=== PATIENT | female | born 1990 | race Two or more races ===

== ENCOUNTER 2017-01-23 15:22 | Emergency (ER) | payer SELFPAY ==
[~2017-01-23] VITALS: Ht 170.2 cm; Wt 95.3 kg
[2017-01-23] MEDS ORDERED: Famotidine 20 MG/ 2ML VIAL IVP ONE (16:15)
[2017-01-23] MEDS ORDERED: Metoclopramide 10mg/2ml Inj IVP ONE (16:15)
[2017-01-23 16:28] LABS: APPEARANCE,URINE SLIGHTLY CLOUDY; KETONES,URINE NEGATIVE (NEGATIVE); LEUKOCYTE ESTERASE ,URINE 2+ (NEGATIVE); NITRITE,URINE NEGATIVE (NEGATIVE); PH,URINE 7 (4.5-8.0); PROTEIN,URINE NEGATIVE (NEGATIVE); UROBILINOGEN,URINE NORMAL MG/DL (0.0-1.0)
[2017-01-23 16:44] LABS: BACTERIA,URINE FEW /HPF; RBC,URINE TNTC /HPF (0 - 2); SQUAMOUS EPITHELIAL CELL,UR FEW /LPF (NONE/OCC); WBC,URINE 0-2 /HPF (0 - 2)
[2017-01-23 16:47] LABS: EOSINOPHILS % (AUTO) 2.5 % (0.0-3.0); LYMPHOCYTES % (AUTO) 30.2 % (20.0-45.0); MEAN CORPUSCULAR HEMOGLOBIN 23.5 PG (27.0-31.0); MEAN CORPUSCULAR HGB CONC 30.9 G/DL (32.0-36.0); MEAN CORPUSCULAR VOLUME 76 FL (80-99); MEAN PLATELET VOLUME 5.7 FL (6.5-10.1); NEUTROPHILS % (AUTO) 59.3 % (45.0-75.0); PLATELET COUNT 282 K/UL (150-450); RED BLOOD COUNT 4.24 M/UL (4.20-5.40); RED CELL DISTRIBUTION WIDTH 16.1 % (11.6-14.8); WHITE BLOOD COUNT 8.9 K/UL (4.8-10.8)
[2017-01-23 16:52] VITALS: BP 130/88
[2017-01-23 16:57] LABS: ALANINE AMINOTRANSFERASE 102 U/L (3-33); ANION GAP 16 (5-15); ASPARTATE AMINO TRANSFERASE 74 U/L (5-40); CALCIUM 9.3 mg/dL (8.6-10.2); CARBON DIOXIDE 24 mEQ/L (20-30); CHLORIDE 100 mEQ/L (98-107); CREATININE 0.6 mg/dL (0.5-0.9); GLOMERULAR FILTRATION RATE > 60 mL/min (>60); HEMOLYSIS 1; LIPASE 35 U/L (< 60); POTASSIUM 3.8 mEQ/L (3.4-4.9); SODIUM 140 mEQ/L (135-145); TOTAL PROTEIN 8.1 g/dL (6.6-8.7)
[2017-01-23] MEDS ORDERED: ZOFRAN ODT4 MG ORAL (17:26)
[2017-01-23] MEDS ORDERED: RANITIDINE HCL150 MG ORAL (17:26)
[2017-01-23 17:35] VITALS: BP 130/88
--- NOTE | 2017-01-23 18:53 | Emergency Room Report ---
History of Present Illness General Chief Complaint: Abdominal Pain Source: Patient Present Illness HPI 26-year-old female present to ED complaining of abdominal pain and vomiting. States symptoms started yesterday. Pain is epigastric, sharp, 9/10, nonradiating. Notes multiple episodes of vomiting. Denies chest pain or shortness of breath. Denies diarrhea. Denies dysuria or hematuria. No other aggravating or relieving factors. Denies any other associated symptom Allergies: Coded Allergies: No Known Allergies (Unverified , 01/23/17) Patient History Past Medical History: none Past Surgical History: none Pertinent Family History: none Social History: Denies: alcohol use, drug use, smoking Last Menstrual Period: 01/19/17 Now: No Immunizations: UTD Reviewed Nursing Documentation: PMH: Agreed, PSxH: Agreed Nursing Documentation-PMH Past Medical History: No Stated History Review of Systems All Other Systems: negative except mentioned in HPI Physical Exam Vital Signs Date Time Temp Pulse Resp B/P Pulse Ox O2 Delivery O2 Flow Rate FiO2 01/23/17 15:33 97.9 77 15 132/84 100 Room Air Sp02 EP Interpretation: reviewed, normal General Appearance: no apparent distress, alert, GCS 15, non-toxic Head: normocephalic Eyes: bilateral eye PERRL, bilateral eye normal inspection ENT: normal ENT inspection Neck: normal inspection Respiratory: chest non-tender, lungs clear, normal breath sounds, speaking full sentences Cardiovascular #1: regular rate, rhythm, no edema Gastrointestinal: normal bowel sounds, soft, non-distended, no guarding, no rebound, tenderness - epigastric Rectal: deferred Genitourinary: no CVA tenderness Musculoskeletal: normal inspection Neurologic: alert, oriented x3, responsive, motor strength/tone normal, sensory intact, speech normal Psychiatric: normal inspection Skin: normal inspection Lymphatic: normal inspection Medical Decision Making Diagnostic Impression: Primary Impression: Gastritis Qualified Codes: K29.00 - Acute gastritis without bleeding ER Course Hospital Course 26-year-old F presents to ED with epigastric pain with N/V. differential diagnosis: gastritis, SBO, cholecystits Clinical course Patient placed on stretcher. On monitoring tech. After initial history and physical I ordered labs, IV fluids, Zofran and pepcid Labs - no leukocytosis, no electrolyte abnormalities, LFTs normal, UA unremarkable Upon reassessment, patient states pain has improved. findings consistent with gastritis I feel this is a highly complex case requiring extensive working including EKG/ Rhythm strip, Xray/CT/US, Blood/urine lab work, repeat exams while in ED, and administration of strong opiates/narcotics for pain control, admission to hospital or close patient follow up. Diagnosis - gastritis Stable and discharged to home with prescriptions for zofran, Zantac. Followup with PMD. Return to ED if symptoms recur or worsen Labs Test 01/23/17 16:09 01/23/17 16:27 Urine Color Pale yellow Urine Appearance Slightly cloudy Urine pH 7 (4.5-8.0) Urine Specific [place] 1.005 (1.005-1.035) Urine Protein Negative (NEGATIVE) Urine Glucose (UA) Negative (NEGATIVE) Urine Ketones Negative (NEGATIVE) Urine Occult Blood 5+ (NEGATIVE) Urine Nitrite Negative (NEGATIVE) Urine Bilirubin Negative (NEGATIVE) Urine Urobilinogen Normal MG/DL (0.0-1.0) Urine Leukocyte Esterase 2+ (NEGATIVE) Urine RBC Tntc /HPF (0 - 2) Urine WBC 0-2 /HPF (0 - 2) Urine Squamous Epithelial Cells Few /LPF (NONE/OCC) Urine Bacteria Few /HPF (NONE) Urine HCG, Qualitative Negative White Blood Count 8.9 K/UL (4.8-10.8) Red Blood Count 4.24 M/UL (4.20-5.40) Hemoglobin 10.0 G/DL (12.0-16.0) Hematocrit 32.3 % (37.0-47.0) Mean Corpuscular Volume 76 FL (80-99) Mean Corpuscular Hemoglobin 23.5 PG (27.0-31.0) Mean Corpuscular Hemoglobin Concent 30.9 G/DL (32.0-36.0) Red Cell Distribution Width 16.1 % (11.6-14.8) Platelet Count 282 K/UL (150-450) Mean Platelet Volume 5.7 FL (6.5-10.1) Neutrophils (%) (Auto) 59.3 % (45.0-75.0) Lymphocytes (%) (Auto) 30.2 % (20.0-45.0) Monocytes (%) (Auto) 7.0 % (1.0-10.0) Eosinophils (%) (Auto) 2.5 % (0.0-3.0) Basophils (%) (Auto) 1.0 % (0.0-2.0) Sodium Level 140 mEQ/L (135-145) Potassium Level 3.8 mEQ/L (3.4-4.9) Chloride Level 100 mEQ/L (98-107) Carbon Dioxide Level 24 mEQ/L (20-30) Anion Gap 16 (5-15) Blood Urea Nitrogen 8 mg/dL (7-23) Creatinine 0.6 mg/dL (0.5-0.9) Estimat Glomerular Filtration Rate > 60 mL/min (>60) Glucose Level 84 mg/dL (74-106) Calcium Level 9.3 mg/dL (8.6-10.2) Total Bilirubin 0.2 mg/dL (0.0-1.2) Aspartate Amino Transf (AST/SGOT) 74 U/L (5-40) Alanine Aminotransferase (ALT/SGPT) 102 U/L (3-33) Alkaline Phosphatase 90 U/L (35-104) Total Protein 8.1 g/dL (6.6-8.7) Albumin 4.1 g/dL (3.5-5.2) Globulin 4.0 g/dL Albumin/Globulin Ratio 1.0 (1.0-2.7) Lipase 35 U/L (< 60) Last Vital Signs Date Time Temp Pulse Resp B/P Pulse Ox O2 Delivery O2 Flow Rate FiO2 01/23/17 17:35 97.9 81 19 130/88 98 Room Air Status: improved Disposition: HOME, SELF-CARE Condition: Stable Scripts Ondansetron Odt* (ZOFRAN ODT*) 4 Mg Tab.rapdis 4 MG ORAL Q6H Y for Nausea & Vomiting, #30 TAB 0 Refills Prov: PARIS ZHOU M.D. 01/23/17 Ranitidine Hcl* (ZANTAC*) 150 Mg Tablet 150 MG ORAL TWICE A DAY, #30 TAB Prov: PARIS ZHOU M.D. 01/23/17 Patient Instructions: Gastritis, Adult, Ujul-al-Chni PARIS ZHOU M.D. Jan 23, 2017 18:53
== END 2017-01-23 17:36 | disposition home or self-care (01) ==
LOC: EMR 17:14
DX: K29.70 Gastritis, unspecified, without bleeding (principal)
CPT/HCPCS: 36415; 80053; 81003; 81025; 83690; 85025; 96374; 96375; 99284; J2765; S0028

== ENCOUNTER 2017-03-03 18:23 | Emergency (ER) | payer OTHER ==
[~2017-03-03] VITALS: Ht 170.2 cm; Wt 90.7 kg
[~2017-03-03 18:23] MED LIST: RANITIDINE HCL150 MG ORAL; ZOFRAN ODT4 MG ORAL
[2017-03-03 18:31] VITALS: BP 131/88
[2017-03-03 19:15] VITALS: BP 131/88
[2017-03-03] MEDS ORDERED: CEPHALEXIN500 MG ORAL (19:23)
[2017-03-03] MEDS ORDERED: CORTIZONE 1028 GM TP (19:23)
--- NOTE | 2017-03-03 21:05 | Emergency Room Report ---
History of Present Illness General Chief Complaint: Skin Rash/Abscess Source: Patient Present Illness HPI The patient is a 26 -year-old female presenting for rash and pain of the right arm. The patient states that she awoke yesterday with the symptoms. She denies any known injury to these areas. Pain is described as an 8/10 burning sensation and does not radiate. Pain worse with touch. She initially noted small red bumps which then grew in size. She denies any known allergies. She denies using any new products. She has not tried any medications. She denies any other symptoms including nausea, vomiting, fever, chills, shortness of breath Allergies: Coded Allergies: No Known Allergies (Unverified , 01/23/17) Patient History Past Medical History: see triage record Pertinent Family History: none Last Menstrual Period: 1 month Now: No Reviewed Nursing Documentation: PMH: Agreed, PSxH: Agreed Nursing Documentation-PMH Past Medical History: No History, Except For Review of Systems All Other Systems: negative except mentioned in HPI Physical Exam Vital Signs Date Time Temp Pulse Resp B/P Pulse Ox O2 Delivery O2 Flow Rate FiO2 03/03/17 18:31 98.1 90 18 131/88 98 Room Air Sp02 EP Interpretation: reviewed, normal General Appearance: no apparent distress, alert, GCS 15, non-toxic Head: normocephalic, atraumatic Eyes: bilateral eye PERRL, bilateral eye normal inspection ENT: hearing grossly normal, normal pharynx, no angioedema, normal voice Respiratory: chest non-tender, lungs clear, normal breath sounds, speaking full sentences Cardiovascular #1: regular rate, rhythm, no edema Musculoskeletal: back normal, gait/station normal, normal range of motion, non- tender Neurologic: alert, oriented x3, responsive, motor strength/tone normal, sensory intact, speech normal Psychiatric: judgement/insight normal, memory normal, mood/affect normal, no suicidal/homicidal ideation Skin: normal turgor, rash - R arm: tender, erythematous, hot Lymphatic: no adenopathy Medical Decision Making PA Attestation Dr. Roe is my supervising physician. Patient management was discussed with my supervising physician Diagnostic Impression: Primary Impression: Cellulitis Qualified Codes: L03.113 - Cellulitis of right upper limb ER Course The patient is a 26 old female presenting for painful red rash of the right arm Ddx considered include but not limited to insect bite, contact dermatitis, eczema, cellulitis Physical exam: Vitals are within normal limits. No apparent distress Right arm: There are 3 erythematous macular lesions approximately 6 cm in diameter with a central papule. Tender to palpation. Hot to the touch. No streaking is noted. The patient will be treated for cellulitis. ER precautions are given. Last Vital Signs Date Time Temp Pulse Resp B/P Pulse Ox O2 Delivery O2 Flow Rate FiO2 03/03/17 19:15 98.1 90 18 131/88 98 Room Air Status: improved Disposition: HOME, SELF-CARE Condition: Improved Scripts Hydrocortisone (CORTIZONE 10) 28 Gm Gel..gram. 1 APPLIC TP TID, #28 GM Prov: GUNNAR OTTO 03/03/17 Cephalexin* (KEFLEX*) 500 Mg Capsule 500 MG ORAL EVERY 6 HOURS, #28 CAP Prov: GUNNAR OTTO 03/03/17 Referrals: [facility]LE[facility],REFERRING (PCP) Patient Instructions: Cellulitis Additional Instructions: I discussed my findings with the patient. All questions and concerns have been answered. Treatment and medication compliance have been addressed. I advised the patient that they need to follow up with PMD in 3-5 days. Return to ED if symptoms worsen, new symptoms arise such as fever, or if needed for any reason. Patient verbalized understanding of discharge instructions. GUNNAR OTTO March 03, 2017 21:04
== END 2017-03-03 19:50 | disposition home or self-care (01) ==
LOC: EMR 19:05
DX: L03.113 Cellulitis of right upper limb (principal)
CPT/HCPCS: 99284

== ENCOUNTER 2017-03-29 19:23 | Emergency (ER) | payer OTHER ==
[~2017-03-29] VITALS: Ht 172.7 cm; Wt 90.7 kg
[~2017-03-29 19:23] MED LIST changes: +CEPHALEXIN500 MG ORAL; +CORTIZONE 1028 GM TP
[2017-03-29 19:50] VITALS: BP 130/82
--- NOTE | 2017-03-29 19:57 | Emergency Room Report ---
History of Present Illness General Chief Complaint: Upper Extremity Injury Present Illness HPI 26 y/o female c/o right shoulder pain x 2 days. States she had fallen and landed on her right shoulder and her pain has been progressively getting worse and she feels a snapping sensation on the superior lateral aspect of right clavicle region. States pain is worse with ROM and that she cannot raise her arm over her head due to the pain. States she took 800mg ibuprofen w/o improvement, last taken 2 hours ago. Patient denies any numbness, tingling, pressure, paralysis, cyanosis, bruising, or loss of sensation. Allergies: Coded Allergies: No Known Allergies (Unverified , 01/23/17) Patient History Past Medical History: see triage record Past Surgical History: none Pertinent Family History: none Last Menstrual Period: 1 week ago Now: No Reviewed Nursing Documentation: PMH: Agreed, PSxH: Agreed Review of Systems All Other Systems: negative except mentioned in HPI Physical Exam Vital Signs Date Time Temp Pulse Resp B/P Pulse Ox O2 Delivery O2 Flow Rate FiO2 03/29/17 19:37 97.9 80 16 137/80 100 Room Air Sp02 EP Interpretation: reviewed, normal General Appearance: no apparent distress, alert, GCS 15, non-toxic Head: normocephalic, atraumatic Eyes: bilateral eye normal inspection ENT: normal ENT inspection Neck: full range of motion, no bony tend, supple/symm/no masses Respiratory: normal breath sounds, speaking full sentences Cardiovascular #1: normal peripheral pulses, normal capillary refill Cardiovascular #2: 2+ radial (R), 2+ radial (L) Musculoskeletal: back normal, gait/station normal, decreased range of motion - with abduction and extension of right shoulder, other - +Neers, +Yaergons, Neg Sulcus, +Empty Can. Pain against resistance esspecially against abduction and flexsion of right shoulder. , tender - along right clavicle and right deltoid Neurologic: alert, oriented x3, responsive, motor strength/tone normal, sensory intact, speech normal Psychiatric: judgement/insight normal, memory normal, mood/affect normal, no suicidal/homicidal ideation Skin: normal color, no rash, warm/dry, well hydrated Medical Decision Making PA Attestation Dr. Monzon is my supervising physician with whom patient management has been discussed with. Diagnostic Impression: Primary Impression: Injury of right upper extremity Qualified Codes: S49.91XA - Unspecified injury of right shoulder and upper arm , initial encounter Additional Impression: Right shoulder pain Qualified Codes: M25.511 - Pain in right shoulder ER Course Pt. presents to the ED c/o shoulder pain Ddx considered but are not limited to fracture, dislocation, sprain, strain, tendonitis, AC joint separation, contusion Vital signs: are WNL, pt. is afebrile H&PE are most consistent with [] ORDERS: XR Shoulder ED INTERVENTIONS: Sling, [place] 10/325mg PO DISCHARGE: At this time pt. is stable for d/c to home. Patient advised she may need MRI with PCP for further eval to r/o tendon rupture. Will provide printed patient care instructions, and any necessary prescriptions. Care plan and follow up instructions have been discussed with the patient prior to discharge. Other X-Ray Diagnostic Results Other X-Ray Diagnostic Results : X-Ray Ordered: Right shoulder Date: Mar 29, 2017 EP Interpretation: Yes Findings: no fractures, no dislocation, other - Possible AC joint seperation. Possible compression fracture Last Vital Signs Date Time Temp Pulse Resp B/P Pulse Ox O2 Delivery O2 Flow Rate FiO2 03/29/17 19:37 97.9 80 16 137/80 100 Room Air Status: unchanged Disposition: HOME, SELF-CARE Condition: Stable Scripts Methocarbamol* (ROBAXIN-750*) 750 Mg Tablet 750 MG PO TID, #30 TAB 0 Refills Prov: SABRY,TAMEEM P.A. 03/29/17 Acetaminophen With Codeine (T#4) (TYLENOL #4 TAB*) Y Tab 1 TAB ORAL Q8H Y for For Pain, #20 TAB 0 Refills Prov: SABRY,TAMEEM P.A. 03/29/17 Patient Instructions: Shoulder Separation Additional Instructions: Take medication as directed. Advise patient to use RICE therapy and avoid exercises for the next 2-3 weeks to help rest the shoulder. Patient to follow up with PCP within 5-7 days for additional management of injury. Patient instructed to massage the muscles that are tight or tense, put ice for 5-7 minutes or a frozen bag of peas or cold gel pack on the area for 20 minutes at a time, a few times a day, put heat on the area to reduce pain and stiffness by either taking a hot shower or hot bath, or put a hot towel on the area for no more than 20 minutes at a time. Patient instructed to not use anything too hot that could burn your skin. Return to the ER if symptoms worsen. SUNDAR RAMOS Mar 29, 2017 19:57
[2017-03-29] MEDS ORDERED: Norco 10mg/325mg tab ORAL ONE (20:00)
[2017-03-29] MEDS ORDERED: ROBAXIN-750750 MG PO (20:34)
[2017-03-29] MEDS ORDERED: ACETAMINOPHEN-1 EAC2 ORAL (20:34)
[2017-03-29 20:50] VITALS: BP 130/82
--- NOTE | 2017-03-30 11:24 | Diagnostic Imaging Report ---
Indication: Pain Findings: 3 views of the right shoulder were obtained. No acute fractures, malalignment, erosions or periostitis are identified. Bone mineralization is within normal limits. Soft tissues are unremarkable. Impression: Negative examination of the shoulder.
== END 2017-03-29 20:50 | disposition home or self-care (01) ==
LOC: EMR 19:48
DX: S49.91XA Unspecified injury of right shoulder and upper arm, initial encounter (principal); M25.511 Pain in right shoulder; W19.XXXA Unspecified fall, initial encounter; Y93.9 Activity, unspecified; Y92.9 Unspecified place or not applicable
CPT/HCPCS: 99284

== ENCOUNTER 2017-04-01 11:28 | Emergency (ER) | payer OTHER ==
[~2017-04-01] VITALS: Ht 170.2 cm; Wt 95.3 kg
[~2017-04-01 11:28] MED LIST changes: +ACETAMINOPHEN-1 EAC2 ORAL; +ROBAXIN-750750 MG PO
[2017-04-01 11:40] VITALS: BP 125/89
--- NOTE | 2017-04-01 11:50 | Emergency Room Report ---
History of Present Illness General Chief Complaint: Upper Extremity Injury Source: Patient Present Illness HPI 26 y/o female c/o right shoulder pain x 5 days. States she had fallen and landed on her right shoulder and her pain has been progressively getting worse and she feels a snapping sensation on the superior lateral aspect of right clavicle region. When she was seen 3 days ago she had stated pain is worse with ROM and that she cannot raise her arm over her head due to the pain. Today she states she has no ROM of right shoulder and that she continued to feel a popping and snapping sensation of her right shoulder prior to losing ROM of the right shoulder. States she took 800mg ibuprofen, Robaxin 750mg, Tylenol #4 and used a sling with RICE therapy w/o relief, last taken last night. States she saw her PCP who stated she follow up in 2 weeks if symptoms did not improve. Patient denies any numbness, tingling, pressure, cyanosis, bruising, or loss of sensation. Allergies: Coded Allergies: No Known Allergies (Unverified , 01/23/17) Patient History Past Medical History: see triage record Past Surgical History: none Pertinent Family History: none Last Menstrual Period: 2 weeks Now: No Reviewed Nursing Documentation: PMH: Agreed, PSxH: Agreed Nursing Documentation-PMH Past Medical History: No History, Except For Review of Systems All Other Systems: negative except mentioned in HPI Physical Exam Vital Signs Date Time Temp Pulse Resp B/P Pulse Ox O2 Delivery O2 Flow Rate FiO2 04/01/17 11:31 98.2 89 127/86 98 Room Air 04/01/17 11:40 14 Sp02 EP Interpretation: reviewed, normal General Appearance: no apparent distress, alert, GCS 15, non-toxic Head: normocephalic, atraumatic Eyes: bilateral eye PERRL, bilateral eye normal inspection ENT: normal ENT inspection Respiratory: no respiratory distress, speaking full sentences Cardiovascular #1: normal peripheral pulses, normal capillary refill Musculoskeletal: gait/station normal, decreased range of motion - unable to abduct, extend, or externally rotate right shoulder., tender - severely tender along right clavicle and right anterior shoulder. Neurologic: alert, oriented x3, responsive, sensory intact, speech normal Psychiatric: judgement/insight normal, memory normal, mood/affect normal, no suicidal/homicidal ideation Skin: normal color, no rash, warm/dry, well hydrated Medical Decision Making PA Attestation Dr. Monzon is my supervising physician with whom patient management has been discussed with. Diagnostic Impression: Primary Impression: Rotator cuff injury Qualified Codes: S46.001D - Unspecified injury of muscle(s) and tendon(s) of the rotator cuff of right shoulder, subsequent encounter Additional Impression: Right shoulder pain Qualified Codes: M25.511 - Pain in right shoulder ER Course Pt. presents to the ED c/o right shoulder pain Ddx considered but are not limited to sprain, strain, contusion, dislocation, fracture, tendonitis, shoulder impingement, adhesive capsulitis, tendon rupture Vital signs: are WNL, pt. is afebrile H&PE are most consistent with rotator cuff injury, cannot rule out tendon rupture ORDERS: none required at this time, the diagnosis is clinical ED INTERVENTIONS: [place] 10, Ibuprofen 800mg. Placed a call to patient's PCP, Bibiana Forrest. PCP was not present but spoke with philanthropy officer Marion and advised that she consider PT for patient and MRI which would be more appropriate test for patient's injury than a CT scan from our ER. Marion stated she would get the patient a stat PT referral and put in a request for MRI. DISCHARGE: At this time pt. is stable for d/c to home. Will provide printed patient care instructions, and any necessary prescriptions. Care plan and follow up instructions have been discussed with the patient prior to discharge. Last Vital Signs Date Time Temp Pulse Resp B/P Pulse Ox O2 Delivery O2 Flow Rate FiO2 04/01/17 11:40 98.1 87 14 125/89 99 Room Air Status: unchanged Disposition: HOME, SELF-CARE Condition: Stable Scripts Hydrocodone Bit/Acetaminophen 10-325* (NORCO 10-325*) 1 Each Tablet 1 TAB ORAL Q8HR Y for For Pain, #24 TAB 0 Refills PRN PAIN Prov: SUNDAR RAMOS.Rosangela 04/01/17 Referrals: [facility],REFERRING (PCP) Patient Instructions: Impingement Syndrome, Rotator Cuff, Bursitis With Rehab- [facility], Rotator Cuff Injury Additional Instructions: Take medication as directed. Patient advised to follow up with PCP for PT and MRI orders and to collect medical record request from [facility] to supply to PCP for referral and MRI to be processed. Advise patient to use RICE therapy and avoid exercises for the next 2-3 weeks to help rest the shoulder. Patient instructed to massage the muscles that are tight or tense, put ice for 5-7 minutes or a frozen bag of peas or cold gel pack on the area for 20 minutes at a time, a few times a day, put heat on the area to reduce pain and stiffness by either taking a hot shower or hot bath, or put a hot towel on the area for no more than 20 minutes at a time. Patient instructed to not use anything too hot that could burn your skin. SUNDAR RAMOS Apr 01, 2017 11:50
[2017-04-01] MEDS ORDERED: Norco 10mg/325mg tab ORAL ONE (12:00)
[2017-04-01] MEDS ORDERED: NORCO 10-325 T1 EACH ORAL (12:19)
[2017-04-01 12:28] VITALS: BP 125/89
== END 2017-04-01 12:30 | disposition home or self-care (01) ==
LOC: EMR 11:45
DX: S46.001D Unspecified injury of muscle(s) and tendon(s) of the rotator cuff of right shoulder, subsequent encounter (principal); M25.511 Pain in right shoulder; W19.XXXD Unspecified fall, subsequent encounter
CPT/HCPCS: 99283

== ENCOUNTER 2017-05-26 21:05 | Emergency (ER) | payer OTHER ==
[~2017-05-26] VITALS: Ht 172.7 cm; Wt 104.3 kg
[~2017-05-26 21:05] MED LIST changes: +NORCO 10-325 T1 EACH ORAL
[2017-05-26 22:00] VITALS: BP 134/78
[2017-05-26 22:40] LABS: BASOPHILS % (AUTO) 1.1 % (0.0-2.0); EOSINOPHILS % (AUTO) 1.4 % (0.0-3.0); LYMPHOCYTES % (AUTO) 33.2 % (20.0-45.0); MEAN CORPUSCULAR HEMOGLOBIN 24.9 PG (27.0-31.0); MEAN CORPUSCULAR VOLUME 78 FL (80-99); MEAN PLATELET VOLUME 5.5 FL (6.5-10.1); MONOCYTES % (AUTO) 5.9 % (1.0-10.0); NEUTROPHILS % (AUTO) 58.4 % (45.0-75.0); PLATELET COUNT 331 K/UL (150-450); RED BLOOD COUNT 4.04 M/UL (4.20-5.40); RED CELL DISTRIBUTION WIDTH 15.8 % (11.6-14.8); WHITE BLOOD COUNT 8.7 K/UL (4.8-10.8)
[2017-05-26 22:41] LABS: APPEARANCE,URINE SLIGHTLY CLOUDY; KETONES,URINE NEGATIVE (NEGATIVE); LEUKOCYTE ESTERASE ,URINE NEGATIVE (NEGATIVE); NITRITE,URINE NEGATIVE (NEGATIVE); PH,URINE 7 (4.5-8.0); PROTEIN,URINE NEGATIVE (NEGATIVE); UROBILINOGEN,URINE NORMAL MG/DL (0.0-1.0)
[2017-05-26 22:54] LABS: BACTERIA,URINE FEW /HPF; SQUAMOUS EPITHELIAL CELL,UR FEW /LPF (NONE/OCC)
--- NOTE | 2017-05-26 22:59 | Emergency Room Report ---
History of Present Illness General Chief Complaint: Gastrointestinal Bleed Source: Patient, Medical Record Present Illness HPI Is a 26-year-old female with no significant past medical history. She presents with 2 complaints. First complaint is vaginal bleeding. Her menstrual flow was irregular this month. It lasted for about 7 days. It came on again midcycle and now stop. She lost about 20 pounds in last week by dieting. No fever or chills. No nausea no vomiting. Mild cramping. Normally her menstrual flow is very heavy. Second complaint is rectal bleeding. Onset for one day. Bright red blood in the toilet. No pain. She had this before but usually spotting. No trauma. Allergies: Coded Allergies: No Known Allergies (Unverified , 01/23/17) Patient History Past Medical History: see triage record, old chart reviewed Past Surgical History: none Pertinent Family History: none Social History: Denies: smoking Last Menstrual Period: 05/06/17 Now: No : 0 Para: 0 Immunizations: other Reviewed Nursing Documentation: PMH: Agreed, PSxH: Agreed Review of Systems Eye: Denies: blurred vision, eye pain ENT: Denies: ear pain, nose congestion, throat swelling Respiratory: Denies: cough, shortness of breath Cardiovascular: Denies: chest pain, palpitations Gastrointestinal: Denies: abdominal pain, diarrhea, nausea, vomiting Genitourinary: Reports: vag bleed/dc Musculoskeletal: Denies: back pain, joint pain Skin: Denies: rash Neurological: Denies: headache, numbness Endocrine: Denies: increased thirst, increased urine Hematologic/Lymphatic: Denies: easy bruising All Other Systems: negative except mentioned in HPI Physical Exam Vital Signs Date Time Temp Pulse Resp B/P Pulse Ox O2 Delivery O2 Flow Rate FiO2 05/26/17 21:23 98.1 75 18 134/78 98 Room Air vitals normal Sp02 EP Interpretation: reviewed, normal General Appearance: well appearing, no apparent distress, alert Head: normocephalic, atraumatic Eyes: bilateral eye EOMI, bilateral eye PERRL ENT: hearing grossly normal, normal pharynx Neck: full range of motion, supple, no meningismus Respiratory: chest non-tender, lungs clear, normal breath sounds Cardiovascular #1: regular rate, rhythm, no murmur Gastrointestinal: normal bowel sounds, non tender, no mass, no organomegaly, no bruit, non-distended Rectal: normal exam, normal rectal tone, heme negative stool Musculoskeletal: back normal, gait/station normal, normal range of motion Psychiatric: mood/affect normal Skin: warm/dry Medical Decision Making Diagnostic Impression: Primary Impression: Rectal bleeding Additional Impressions: Dysfunctional uterine bleeding Anemia Qualified Codes: D64.9 - Anemia, unspecified ER Course Patient with dysfunctional uterine bleeding. No evidence of severe blood loss. She's not . Hemoglobin is stable from several months ago. Rectal bleeding is most likely internal hemorrhoid. It persisted may need colonoscopy or sigmoidoscopy. This can be done as an outpatient. I see no evidence of thrombosis. Lab Results Impression CBC at baseline Last Vital Signs Date Time Temp Pulse Resp B/P Pulse Ox O2 Delivery O2 Flow Rate FiO2 05/26/17 21:23 98.1 75 18 134/78 98 Room Air Status: improved Disposition: HOME, SELF-CARE Condition: Stable Referrals: [facility],REFERRING (PCP) Additional Instructions: Followup your Dr. in 7 days. Return if symptom worsen. You may need a referral to see a tax adjuster if vaginal bleeding is persistent. May also need to see a GI Dr. for colonoscopy is continue with rectal bleeding. DORON AGRAWAL M.D. May 26, 2017 22:59
[2017-05-26 23:03] VITALS: BP 134/78
== END 2017-05-26 23:03 | disposition home or self-care (01) ==
LOC: EMR 21:57
DX: N93.8 Other specified abnormal uterine and vaginal bleeding (principal); K62.5 Hemorrhage of anus and rectum; D64.9 Anemia, unspecified
CPT/HCPCS: 36415; 81003; 81025; 85025; 99282

== ENCOUNTER 2017-05-29 21:56 | Emergency (ER) | payer OTHER ==
[~2017-05-29] VITALS: Ht 172.7 cm; Wt 99.8 kg
[2017-05-29 22:10] VITALS: BP 128/82
[2017-05-29] MEDS ORDERED: Norco 5mg/325mg tab ORAL ONE ×2 (22:15→22:45)
[2017-05-29] MEDS ORDERED: Norco 5mg/325mg tab ONE (22:44)
[2017-05-29] MEDS ORDERED: IBUPROFEN600 MG ORAL (22:49)
[2017-05-29] MEDS ORDERED: HYDROCODON-ACE1 EA15 ORAL (22:49)
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
[2017-05-29 22:55] VITALS: BP 128/82
--- NOTE | 2017-05-30 10:57 | Diagnostic Imaging Report ---
Indication: TRAUMA Technique: 3 views of the right shoulder Comparison: none Findings: No acute fractures. No dislocations. Joint spaces are preserved. Impression:Negative
== END 2017-05-29 22:55 | disposition home or self-care (01) ==
LOC: EMR 22:20
DX: S43.401A Unspecified sprain of right shoulder joint, initial encounter (principal); S39.012A Strain of muscle, fascia and tendon of lower back, initial encounter; V43.52XA Car driver injured in collision with other type car in traffic accident, initial encounter; Y92.414 Local residential or business street as the place of occurrence of the external cause
CPT/HCPCS: 99284

== ENCOUNTER 2017-08-21 05:24 | Emergency (ER) | payer MEDICAID, OTHER ==
[~2017-08-21] VITALS: Ht 172.7 cm; Wt 99.8 kg
[~2017-08-21 05:24] MED LIST changes: +HYDROCODON-ACE1 EA15 ORAL; +IBUPROFEN600 MG ORAL
[2017-08-21] MEDS ORDERED: IRON159 MG PO (05:43)
--- NOTE | 2017-08-21 05:59 | Emergency Room Report ---
History of Present Illness General Chief Complaint: Abdominal Pain Source: Patient Present Illness HPI Is a 27-year-old female with a history of dysfunctional uterine bleeding anemia. She presents he complaining of pelvic pain and vaginal bleeding. His been ongoing since April. She was here before for the same. Here her hemoglobin was 10. She continued to have vaginal bleeding and her packaging line operator place her on control pill. Bleeding worse in the last week and on Friday she went to [facility] because she had a syncopal episode at work. Workup at [facility] showed a hemoglobin of 8. Ultrasound does not show any fibroid. Only showed a small cyst. Patient was told to followup with her packaging line operator and also prescribed iron. Symptom worsen tonight. She is more bleeding and crampy pain is 8/10. Sharp in nature. Worse with exertion. Better with rest. Allergies: Coded Allergies: No Known Allergies (Unverified , 01/23/17) Patient History Past Medical History: see triage record, old chart reviewed Past Surgical History: other Pertinent Family History: none Social History: Denies: smoking Last Menstrual Period: march Now: No : 1 Immunizations: other Reviewed Nursing Documentation: PMH: Agreed, PSxH: Agreed Review of Systems Eye: Denies: eye pain, blurred vision ENT: Denies: ear pain, nose congestion, throat swelling Respiratory: Denies: cough, shortness of breath Cardiovascular: Denies: chest pain, palpitations Gastrointestinal: Denies: abdominal pain, diarrhea, nausea, vomiting Genitourinary: Reports: vag bleed/dc Musculoskeletal: Denies: back pain, joint pain Skin: Denies: rash Neurological: Denies: headache, numbness Endocrine: Denies: increased thirst, increased urine Hematologic/Lymphatic: Denies: easy bruising All Other Systems: negative except mentioned in HPI Physical Exam Vital Signs Date Time Temp Pulse Resp B/P (MAP) Pulse Ox O2 Delivery O2 Flow Rate FiO2 08/21/17 05:37 97.9 69 18 122/75 98 Room Air vitals normal Sp02 EP Interpretation: reviewed, normal General Appearance: well appearing, no apparent distress, alert Head: normocephalic, atraumatic Eyes: bilateral eye PERRL, bilateral eye EOMI ENT: hearing grossly normal, normal pharynx Neck: full range of motion, supple, no meningismus Respiratory: chest non-tender, lungs clear, normal breath sounds Cardiovascular #1: regular rate, rhythm, no murmur Gastrointestinal: normal bowel sounds, no mass, no organomegaly, no bruit, non- distended, tenderness - Suprapubic Musculoskeletal: back normal, gait/station normal, normal range of motion Psychiatric: mood/affect normal Skin: warm/dry Medical Decision Making Diagnostic Impression: Primary Impression: Dysfunctional uterine bleeding Additional Impression: Anemia Qualified Codes: D64.9 - Anemia, unspecified ER Course patient with dysfunctional uterine bleeding and anemia. We'll check lab and hemoglobin. Is low she blood transfusion. Patient said she's not . I will sign this patient out to Dr. Jones for final disposition. Pt with DUB and Hg stable. will dc home with OB f/u. Last Vital Signs Date Time Temp Pulse Resp B/P (MAP) Pulse Ox O2 Delivery O2 Flow Rate FiO2 08/21/17 05:37 97.9 69 18 122/75 98 Room Air Status: improved Disposition: HOME, SELF-CARE Condition: Stable Scripts Ibuprofen* (MOTRIN*) 600 Mg Tablet 600 MG ORAL Q8H Y for For Pain, #30 TAB 0 Refills Prov: DORON AGRAWAL M.D. 08/21/17 Hydrocodone/Acetaminophen 5-325* (HYDROCODONE/ACETAMINOPHEN 5-325*) 1 Each Tablet 1 TAB ORAL Q6H Y for For Pain, #20 TAB 0 Refills Prov: DORON AGRAWAL M.D. 08/21/17 Referrals: [facility],REFERRING (PCP) Additional Instructions: Follow up with your OB in 1-2 days. Return if symptoms worsen. DORON AGRAWAL M.D. Aug 21, 2017 05:59
[2017-08-21] MEDS ORDERED: Ketorolac 30mg Inj IV ONE (06:00)
[2017-08-21 06:13] VITALS: BP 122/75
[2017-08-21 06:13] LABS: BASOPHILS % (AUTO) 1.4 % (0.0-2.0); EOSINOPHILS % (AUTO) 1.9 % (0.0-3.0); MEAN CORPUSCULAR HGB CONC 30.8 G/DL (32.0-36.0); MEAN CORPUSCULAR VOLUME 75 FL (80-99); MEAN PLATELET VOLUME 6.1 FL (6.5-10.1); MONOCYTES % (AUTO) 6.8 % (1.0-10.0); NEUTROPHILS % (AUTO) 53.9 % (45.0-75.0); PLATELET COUNT 410 K/UL (150-450); RED BLOOD COUNT 4.29 M/UL (4.20-5.40); RED CELL DISTRIBUTION WIDTH 15.5 % (11.6-14.8); WHITE BLOOD COUNT 8.3 K/UL (4.8-10.8)
[2017-08-21 06:24] LABS: ANION GAP 9 mmol/L (5-15); CALCIUM 8.8 MG/DL (8.5-10.1); CARBON DIOXIDE 25 MMOL/L (21-32); CHLORIDE 105 MMOL/L (98-107); CREATININE 0.8 MG/DL (0.55-1.30); GLOMERULAR FILTRATION RATE > 60 mL/min (>60); SODIUM 139 MMOL/L (136-145)
[2017-08-21 06:24] LABS: APPEARANCE,URINE VERY CLOUDY; KETONES,URINE NEGATIVE (NEGATIVE); LEUKOCYTE ESTERASE ,URINE 1+ (NEGATIVE); NITRITE,URINE NEGATIVE (NEGATIVE); PH,URINE 6.5 (4.5-8.0); PROTEIN,URINE 4+ (NEGATIVE); UROBILINOGEN,URINE NORMAL MG/DL (0.0-1.0)
[2017-08-21 06:27] LABS: BACTERIA,URINE FEW /HPF; RBC,URINE TNTC /HPF (0 - 2); SQUAMOUS EPITHELIAL CELL,UR FEW /LPF (NONE/OCC)
[2017-08-21] MEDS ORDERED: Morphine Sulfate 4mg/ml Inj IVP ONE (06:30)
[2017-08-21] MEDS ORDERED: Morphine Sulfate 2mg/ml Inj IVP ONE ×2 (06:30)
[2017-08-21] MEDS ORDERED: HYDROCODON-ACE1 EA15 ORAL (06:32)
[2017-08-21] MEDS ORDERED: IBUPROFEN600 MG ORAL (06:32)
[2017-08-21 06:50] VITALS: BP 118/72
== END 2017-08-21 06:50 | disposition home or self-care (01) ==
LOC: EMR 05:44
DX: N93.9 Abnormal uterine and vaginal bleeding, unspecified (principal); D64.9 Anemia, unspecified; R10.2 Pelvic and perineal pain
CPT/HCPCS: 36415; 80048; 81001; 81025; 85025; 86850; 86900; 86901; 96361; 96374; 96375; 99284; J1885; J2270; J2405

== ENCOUNTER 2017-10-30 17:52 | Emergency (ER) | payer MEDICAID, OTHER ==
[~2017-10-30] VITALS: Ht 170.2 cm; Wt 86.2 kg
[~2017-10-30 17:52] MED LIST changes: +IRON159 MG PO
[2017-10-30 18:47] VITALS: BP 138/88
[2017-10-30 18:47] LABS: APPEARANCE,URINE SLIGHTLY CLOUDY; BILIRUBIN, URINE NEGATIVE (NEGATIVE); GLUCOSE, URINE (UA) NEGATIVE (NEGATIVE); KETONES,URINE NEGATIVE (NEGATIVE); LEUKOCYTE ESTERASE ,URINE 3+ (NEGATIVE); NITRITE,URINE NEGATIVE (NEGATIVE); PH,URINE 6 (4.5-8.0); PROTEIN,URINE 1+ (NEGATIVE); UROBILINOGEN,URINE NORMAL MG/DL (0.0-1.0)
[2017-10-30 18:49] LABS: COLOR,URINE YELLOW
[2017-10-30] MEDS ORDERED: Cephalexin 500mg cap ORAL ONE (19:00)
[2017-10-30] MEDS ORDERED: Tylenol #3 tab (300mg/30mg) ORAL ONE (19:00)
[2017-10-30] MEDS ORDERED: ACETAMINOPHEN-1 EAC1 ORAL (19:08)
[2017-10-30] MEDS ORDERED: CEPHALEXIN500 MG ORAL (19:08)
[2017-10-30 19:17] VITALS: BP 125/78
--- NOTE | 2017-10-30 21:25 | Emergency Room Report ---
History of Present Illness General Chief Complaint: Female Urogenital Problems Source: Patient Present Illness [facility] The patient is a 27-year-old female presenting for possible UTI. She states that she has had dysuria and increased urinary frequency for the past 2 days. She also admits to subjective fever and pain to the left back. Pain is a 10 out of 10 burning sensation with urination. Pain to the back is a 3/10 dull ache and does not radiate. No known provoking relieving factors. She states that she has had a kidney infection in the past and this feels somewhat similar. She denies other symptoms including vomiting, diarrhea, hematuria, vaginal discharge Allergies: Coded Allergies: No Known Allergies (Unverified , 01/23/17) Patient History Past Medical History: see triage record Pertinent Family History: none Last Menstrual Period: 10/13/17 Now: No : 2 Para: 0 Reviewed Nursing Documentation: PMH: Agreed, PSxH: Agreed Review of Systems All Other Systems: negative except mentioned in HPI Physical Exam Vital Signs Date Time Temp Pulse Resp B/P (MAP) Pulse Ox O2 Delivery O2 Flow Rate FiO2 10/30/17 18:11 99.3 95 18 142/91 99 Room Air Sp02 EP Interpretation: reviewed, normal General Appearance: no apparent distress, alert, GCS 15, non-toxic Head: normocephalic, atraumatic Eyes: bilateral eye normal inspection, bilateral eye PERRL ENT: hearing grossly normal, normal pharynx, no angioedema, normal voice Neck: full range of motion, supple/symm/no masses Respiratory: chest non-tender, lungs clear, normal breath sounds, speaking full sentences Gastrointestinal: normal bowel sounds, soft, non-distended, no guarding, no rebound, tenderness - suprapubic Rectal: deferred Genitourinary: normal inspection, no CVA tenderness Musculoskeletal: back normal, gait/station normal, normal range of motion, non- tender Neurologic: alert, oriented x3, responsive, motor strength/tone normal, sensory intact, speech normal Psychiatric: judgement/insight normal, memory normal, mood/affect normal, no suicidal/homicidal ideation Skin: normal color, no rash, warm/dry, well hydrated Medical Decision Making PA Attestation Dr. Sánchez is my supervising physician. Patient management was discussed with my supervising physician Diagnostic Impression: Primary Impression: Urinary tract infection Qualified Codes: N39.0 - Urinary tract infection, site not specified; R31.9 - Hematuria, unspecified ER Course The patient is a 27-year-old female presenting for possible UTI. Differential diagnosis considered but not limited to: UTI, BV, yeast infection, pyelonephritis, PID, PE: Vitals WNL. NAD. Abdomen: Normal appearance. Non distended. No ecchymosis. Normal BS. TTP over suprapubic region only. No McBurney point tenderness. No guarding. No CVA tenderness Urinalysis is consistent with urinary tract infection The patient discharged home with a prescription for Keflex and is given ER precautions. She was told she may need to return to the emergency department for admission and IV antibiotics if symptoms do not improve within 3 days. Laboratory Tests Test 10/30/17 18:17 Urine Color Yellow Urine Appearance Slightly cloudy Urine pH 6 (4.5-8.0) Urine Specific [place]arts 1.010 (1.005-1.035) Urine Protein 1+ (NEGATIVE) H Urine Glucose (UA) Negative (NEGATIVE) Urine Ketones Negative (NEGATIVE) Urine Occult Blood 1+ (NEGATIVE) H Urine Nitrite Negative (NEGATIVE) Urine Bilirubin Negative (NEGATIVE) Urine Urobilinogen Normal MG/DL (0.0-1.0) Urine Leukocyte Esterase 3+ (NEGATIVE) H Urine RBC 2-4 /HPF (0 - 2) H Urine WBC 5-10 /HPF (0 - 2) H Urine Squamous Epithelial Cells Many /LPF (NONE/OCC) H Urine Bacteria Many /HPF (NONE) H Urine HCG, Qualitative Negative Lab Results Impression Consistent with UTI Last Vital Signs Date Time Temp Pulse Resp B/P (MAP) Pulse Ox O2 Delivery O2 Flow Rate FiO2 10/30/17 19:17 82 18 125/78 99 Room Air 10/30/17 18:47 99.0 Status: improved Disposition: HOME, SELF-CARE Condition: Improved Scripts Cephalexin* (KEFLEX*) 500 Mg Capsule 500 MG ORAL EVERY 6 HOURS, #28 CAP Prov: TERZIAN,GUNNAR P.A. 10/30/17 Acetaminophen With Codeine (T#3) (TYLENOL #3 TAB*) Y Tab 1 TAB ORAL Q6HR Y for For Pain, #10 TAB Prov: TERZIAN,GUNNAR P.A. 1/4/18 Referrals: [facility],REFERRING (PCP) Patient Instructions: Urinary Tract Infection Additional Instructions: I discussed my findings with the patient. All questions and concerns have been answered. Treatment and medication compliance have been addressed. I advised the patient that they need to follow up with PMD in 3-5 days. Return to ED if symptoms worsen, new symptoms arise, or if needed for any reason. Patient verbalized understanding of discharge instructions. GUNNAR OTTO Oct 30, 2017 21:24
== END 2017-10-30 19:16 | disposition home or self-care (01) ==
LOC: EMR 19:01
DX: N39.0 Urinary tract infection, site not specified (principal)
CPT/HCPCS: 81003; 81025; 87086; 87181; 99284

== ENCOUNTER 2018-01-09 16:04 | Emergency (ER) | payer OTHER ==
[~2018-01-09] VITALS: Ht 175.3 cm; Wt 90.7 kg
[~2018-01-09 16:04] MED LIST changes: +ACETAMINOPHEN-1 EAC1 ORAL
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
[2018-01-09 16:57] LABS: BASOPHILS % (AUTO) 1.2 % (0.0-2.0); HEMATOCRIT 33.4 % (37.0-47.0); HEMOGLOBIN 10.2 G/DL (12.0-16.0); LYMPHOCYTES % (AUTO) 30.4 % (20.0-45.0); MEAN CORPUSCULAR VOLUME 69 FL (80-99); NEUTROPHILS % (AUTO) 60.4 % (45.0-75.0); PLATELET COUNT 347 K/UL (150-450); RED BLOOD COUNT 4.88 M/UL (4.20-5.40); RED CELL DISTRIBUTION WIDTH 17.1 % (11.6-14.8); WHITE BLOOD COUNT 8.1 K/UL (4.8-10.8)
[2018-01-09 16:59] LABS: APPEARANCE,URINE SLIGHTLY CLOUDY; BILIRUBIN, URINE NEGATIVE (NEGATIVE); COLOR,URINE PALE YELLOW; GLUCOSE, URINE (UA) NEGATIVE (NEGATIVE); KETONES,URINE NEGATIVE (NEGATIVE); LEUKOCYTE ESTERASE ,URINE 2+ (NEGATIVE); NITRITE,URINE NEGATIVE (NEGATIVE); PH,URINE 6 (4.5-8.0); PROTEIN,URINE NEGATIVE (NEGATIVE); UROBILINOGEN,URINE NORMAL MG/DL (0.0-1.0)
[2018-01-09 17:08] LABS: ANION GAP 9 mmol/L (5-15); BLOOD UREA NITROGEN 10 mg/dL (7-18); CARBON DIOXIDE 27 MMOL/L (21-32); CHLORIDE 103 MMOL/L (98-107); CREATININE 0.7 MG/DL (0.55-1.30); POTASSIUM 3.4 MMOL/L (3.5-5.1); SODIUM 139 MMOL/L (136-145)
[2018-01-09 17:13] LABS: ALANINE AMINOTRANSFERASE 66 U/L (12-78); ALBUMIN 3.7 G/DL (3.4-5.0); ALBUMIN/GLOBULIN RATIO 0.8 (1.0-2.7); ALKALINE PHOSPHATASE 91 U/L (46-116); ASPARTATE AMINO TRANSFERASE 38 U/L (15-37); BILIRUBIN,TOTAL 0.3 MG/DL (0.2-1.0)
[2018-01-09] MEDS ORDERED: BACTRIM DS TAB1 EAC1 ORAL (17:52)
[2018-01-09] MEDS ORDERED: BUTALB-CAFF-AC1 EACH PO (17:52)
[2018-01-09] MEDS ORDERED: HYDROcodone/Acetamin 7.5/325 tab ORAL ONE (18:00)
[2018-01-09 18:10] VITALS: BP 119/81
--- NOTE | 2018-01-13 18:48 | Cardiology Report ---
APPROVED REPORT EKG Measurement Heart [id number] Normal sinus rhythm Minimal voltage criteria for LVH, may be normal variant Cannot rule out Anterior infarct, age undetermined Abnormal ECG
== END 2018-01-09 18:10 | disposition home or self-care (01) ==
LOC: EMR 16:50
DX: N39.0 Urinary tract infection, site not specified (principal); R51 Headache; R55 Syncope and collapse
CPT/HCPCS: 36415; 80053; 81003; 81025; 82962; 85025; 87086; 93005; 99284

== ENCOUNTER 2018-04-09 13:38 | Emergency (ER) | payer OTHER ==
[~2018-04-09] VITALS: Ht 172.7 cm; Wt 90.7 kg
[~2018-04-09 13:38] MED LIST changes: +BACTRIM DS TAB1 EAC1 ORAL; +BUTALB-CAFF-AC1 EACH PO
[2018-04-09] MEDS ORDERED: NKM (13:48)
--- NOTE | 2018-04-09 14:14 | Emergency Room Report ---
History of Present Illness General Chief Complaint: Nausea, Vomiting, and Diarrhea Source: Patient, Medical Record Present Illness HPI Patient presents with complaints of vomiting and diarrhea Symptoms started on Friday patient reports that while she was eating a piece of chicken outside her mouth started watering Became extremely nauseated Soon after that that day the patient did have vomiting episode And has now started having several episodes of vomiting and diarrhea Patient complains of epigastric discomfort Denies any chest pain or shortness of breath denies any lower abdominal pain She complained of chills however no obvious documented fevers denies any neck pain or photophobia Allergies: Coded Allergies: No Known Allergies (Unverified , 01/23/17) Patient History Past Medical History: see triage record Pertinent Family History: none Last Menstrual Period: 03/31/18 Reviewed Nursing Documentation: PMH: Agreed; PSxH: Agreed Nursing Documentation-PMH Past Medical History: No History, Except For Review of Systems All Other Systems: negative except mentioned in HPI Physical Exam Vital Signs Date Time Temp Pulse Resp B/P (MAP) Pulse Ox O2 Delivery O2 Flow Rate FiO2 04/09/18 13:44 98.1 70 18 138/90 98 Room Air 98.1 Sp02 EP Interpretation: reviewed, normal General Appearance: well appearing, no apparent distress Head: normocephalic, atraumatic Eyes: bilateral eye PERRL, bilateral eye EOMI ENT: hearing grossly normal, normal pharynx, TMs + canals normal, uvula midline Neck: full range of motion, supple, no meningismus, no bony tend Respiratory: lungs clear, normal breath sounds, no rhonchi, no respiratory distress, no retraction, no accessory muscle use Cardiovascular #1: normal peripheral pulses, regular rate, rhythm, no edema, no gallop, no JVD, no murmur Gastrointestinal: normal bowel sounds, non tender - On palpation however patient subjectively points diffusely with the discomfort mainly epigastric region, soft, no mass, no organomegaly, non-distended, no guarding, no hernia, no pulsatile mass, no rebound Genitourinary: no CVA tenderness Musculoskeletal: normal inspection Neurologic: oriented x3, responsive, dictaphone operator III-XII nml as tested, motor strength/ tone normal, sensory intact Psychiatric: mood/affect normal Skin: normal color, no rash, warm/dry, palpation normal Lymphatic: normal inspection, no adenopathy Medical Decision Making Diagnostic Impression: Primary Impression: Nausea, vomiting, and diarrhea ER Course With the patient's history and examination, multiple differentials considered, including but not limited to , ectopic , ovarian torsion, gastritis, cholecystitis, pancreatitis, appendicitis Patient's discomfort is mainly localized to the epigastric area There is also vomiting and diarrhea associated With close association to food intake Patient's liver function show minimal elevation Otherwise white blood cell count is normal Repeat examination reveals a soft abdomen Patient is stable for initial conservative outpatient trial she will return with any worsening symptoms or concerns Labs Test 04/09/18 13:56 04/09/18 14:20 Urine HCG, Qualitative Negative (NEGATIVE) White Blood Count 7.1 K/UL (4.8-10.8) Red Blood Count 5.18 M/UL (4.20-5.40) Hemoglobin 11.0 G/DL (12.0-16.0) Hematocrit 37.2 % (37.0-47.0) Mean Corpuscular Volume 72 FL (80-99) Mean Corpuscular Hemoglobin 21.3 PG (27.0-31.0) Mean Corpuscular Hemoglobin Concent 29.6 G/DL (32.0-36.0) Red Cell Distribution Width 16.4 % (11.6-14.8) Platelet Count 354 K/UL (150-450) Mean Platelet Volume 6.0 FL (6.5-10.1) Neutrophils (%) (Auto) 47.4 % (45.0-75.0) Lymphocytes (%) (Auto) 37.5 % (20.0-45.0) Monocytes (%) (Auto) 8.8 % (1.0-10.0) Eosinophils (%) (Auto) 4.5 % (0.0-3.0) Basophils (%) (Auto) 1.8 % (0.0-2.0) Sodium Level 136 MMOL/L (136-145) Potassium Level 4.2 MMOL/L (3.5-5.1) Chloride Level 102 MMOL/L (98-107) Carbon Dioxide Level 23 MMOL/L (21-32) Anion Gap 11 mmol/L (5-15) Blood Urea Nitrogen 8 mg/dL (7-18) Creatinine 0.7 MG/DL (0.55-1.30) Estimat Glomerular Filtration Rate > 60 mL/min (>60) Glucose Level 84 MG/DL (74-106) Calcium Level 8.9 MG/DL (8.5-10.1) Total Bilirubin 0.4 MG/DL (0.2-1.0) Aspartate Amino Transf (AST/SGOT) 88 U/L (15-37) Alanine Aminotransferase (ALT/SGPT) 108 U/L (12-78) Alkaline Phosphatase 85 U/L (46-116) Total Protein 8.9 G/DL (6.4-8.2) Albumin 3.9 G/DL (3.4-5.0) Globulin 5.0 g/dL Albumin/Globulin Ratio 0.8 (1.0-2.7) Lipase 166 U/L (73-393) Last Vital Signs Date Time Temp Pulse Resp B/P (MAP) Pulse Ox O2 Delivery O2 Flow Rate FiO2 04/09/18 13:44 98.1 70 18 138/90 98 Room Air 98.1 Status: improved Disposition: HOME, SELF-CARE Condition: Improved Scripts Ondansetron (Zofran) 4 Mg Tablet 4 MG ORAL Q8H PRN for Nausea & Vomiting, #10 TAB 0 Refills Prov: Adrianna Jones DO 04/09/18 Ciprofloxacin Hcl* (CIPROFLOXACIN HCL*) 500 Mg Tablet 500 MG ORAL Q12H, #10 TAB 0 Refills Prov: Adrianna Jones DO 04/09/18 Additional Instructions: Patient is provided with the discharge instructions notified to follow up with primary doctor in the next 2-3 days otherwise return to the er with any worsening symptoms. Please note that this report is being documented using [employer] technology. This can lead to erroneous entry secondary to incorrect interpretation by the dictating instrument. Adrianna Jones DO Apr 09, 2018 14:14
[2018-04-09] MEDS ORDERED: Metoclopramide 10mg/2ml Inj IVP ONE (14:15)
[2018-04-09] MEDS ORDERED: Ketorolac 30mg Inj IV ONE (14:15)
[2018-04-09 14:43] LABS: BASOPHILS % (AUTO) 1.8 % (0.0-2.0); EOSINOPHILS % (AUTO) 4.5 % (0.0-3.0); HEMATOCRIT 37.2 % (37.0-47.0); LYMPHOCYTES % (AUTO) 37.5 % (20.0-45.0); MEAN CORPUSCULAR VOLUME 72 FL (80-99); MONOCYTES % (AUTO) 8.8 % (1.0-10.0); NEUTROPHILS % (AUTO) 47.4 % (45.0-75.0); PLATELET COUNT 354 K/UL (150-450); RED BLOOD COUNT 5.18 M/UL (4.20-5.40); RED CELL DISTRIBUTION WIDTH 16.4 % (11.6-14.8); WHITE BLOOD COUNT 7.1 K/UL (4.8-10.8)
[2018-04-09 14:54] LABS: ANION GAP 11 mmol/L (5-15); BLOOD UREA NITROGEN 8 mg/dL (7-18); CALCIUM 8.9 MG/DL (8.5-10.1); CARBON DIOXIDE 23 MMOL/L (21-32); CHLORIDE 102 MMOL/L (98-107); CREATININE 0.7 MG/DL (0.55-1.30); POTASSIUM 4.2 MMOL/L (3.5-5.1); SODIUM 136 MMOL/L (136-145)
[2018-04-09 14:58] VITALS: BP 123/73
[2018-04-09 14:59] LABS: ALANINE AMINOTRANSFERASE 108 U/L (12-78); ALBUMIN 3.9 G/DL (3.4-5.0); ALBUMIN/GLOBULIN RATIO 0.8 (1.0-2.7); ALKALINE PHOSPHATASE 85 U/L (46-116); ASPARTATE AMINO TRANSFERASE 88 U/L (15-37); BILIRUBIN,TOTAL 0.4 MG/DL (0.2-1.0)
[2018-04-09] MEDS ORDERED: CIPROFLOXACIN500 M2 ORAL (15:20)
[2018-04-09] MEDS ORDERED: ZOFRAN4 MG ORAL (15:20)
[2018-04-09 15:38] VITALS: BP 123/73
== END 2018-04-09 15:42 | disposition home or self-care (01) ==
LOC: EMR 14:18
DX: R11.2 Nausea with vomiting, unspecified (principal); R19.7 Diarrhea, unspecified
CPT/HCPCS: 36415; 80053; 81025; 83690; 85025; 96360; 96374; 96375; 99284; J1885; J2765; S0028

== ENCOUNTER 2018-04-25 21:54 | Emergency (ER) | payer OTHER ==
[~2018-04-25] VITALS: Ht 175.3 cm; Wt 90.7 kg
[~2018-04-25 21:54] MED LIST changes: +CIPROFLOXACIN500 M2 ORAL; +NKM; +ZOFRAN4 MG ORAL
[2018-04-25] MEDS ORDERED: NKM (22:02)
[2018-04-25] MEDS ORDERED: PREDNISONE20 MG ORAL (22:10)
[2018-04-25] MEDS ORDERED: ALBUTEROL SULF8.5 GM INH (22:10)
--- NOTE | 2018-04-25 22:11 | Emergency Room Report ---
History of Present Illness General Chief Complaint: Upper Respiratory Illness Source: Patient, Medical Record Present Illness HPI Is a 27-year-old female with a history of asthma with infrequent attack. She no longer has an inhaler. Last use of over a year ago. She presents with chief complaint of cough, wheezing and sore throat. Also with a fever. Onset this morning when she woke up. Cough is nonproductive in nature. [place] wheezing. Worse with exertion. Worse with lying flat. Worse with coughing. Has not take anything for it. Has some chest tightness. Allergies: Coded Allergies: No Known Allergies (Unverified , 01/23/17) Patient History Past Medical History: see triage record, old chart reviewed, asthma Past Surgical History: other Pertinent Family History: none Social History: Denies: smoking Last Menstrual Period: 1 month ago Now: No Immunizations: other Reviewed Nursing Documentation: PMH: Agreed; PSxH: Agreed Nursing Documentation-PMH Past Medical History: No History, Except For Hx Asthma: Yes Review of Systems Constitutional: Reports: fever Eye: Denies: eye pain, blurred vision ENT: Denies: ear pain, nose congestion, throat swelling Respiratory: Reports: cough, shortness of breath, wheezing Cardiovascular: Denies: chest pain, palpitations Gastrointestinal: Denies: abdominal pain, diarrhea, nausea, vomiting Musculoskeletal: Denies: back pain, joint pain Skin: Denies: rash Neurological: Denies: headache, numbness Endocrine: Denies: increased thirst, increased urine Hematologic/Lymphatic: Denies: easy bruising All Other Systems: negative except mentioned in HPI Physical Exam Vital Signs Date Time Temp Pulse Resp B/P (MAP) Pulse Ox O2 Delivery O2 Flow Rate FiO2 04/25/18 21:59 98.4 80 16 118/77 97 Room Air 98.4 vitals normal Sp02 EP Interpretation: reviewed, normal General Appearance: well appearing, no apparent distress, alert Head: normocephalic, atraumatic Eyes: bilateral eye PERRL, bilateral eye EOMI ENT: hearing grossly normal, normal pharynx Neck: full range of motion, supple, no meningismus Respiratory: chest non-tender, normal breath sounds, wheezing Cardiovascular #1: regular rate, rhythm, no murmur Gastrointestinal: normal bowel sounds, non tender, no mass, no organomegaly, no bruit, non-distended Musculoskeletal: back normal, gait/station normal, normal range of motion Psychiatric: mood/affect normal Skin: warm/dry Medical Decision Making Diagnostic Impression: Primary Impression: Upper respiratory symptom Additional Impression: Asthma exacerbation, mild ER Course Patient with a viral illness complicated by her asthma exacerbation. No evidence of sepsis, pneumonia, respiratory distress or failure. Better after breathing treatment. We'll discharge home. Last Vital Signs Date Time Temp Pulse Resp B/P (MAP) Pulse Ox O2 Delivery O2 Flow Rate FiO2 04/25/18 21:59 98.4 80 16 118/77 97 Room Air 98.4 Status: improved Disposition: HOME, SELF-CARE Condition: Stable Scripts Prednisone* (PREDNISONE*) 20 Mg Tablet 60 MG ORAL DAILY, #12 TAB Prov: DORON AGRAWAL M.D. 04/25/18 Albuterol Sulfate* (ALBUTEROL SULFATE MDI*) 8.5 Gm Hfa.aer.ad 2 PUFF INH Q4H PRN for cough/wheezing, #1 EA 0 Refills Prov: DORON AGRAWAL M.D. 04/25/18 Referrals: [facility],REFERRING (PCP) Additional Instructions: Increase fluid. Salt water gargle. May take ibuprofen for pain and fever. Follow-up with your doctor in 7 days. Return if symptom worsen. DORON AGRAWAL M.D. Apr 25, 2018 22:11
[2018-04-25 22:14] VITALS: BP 118/69
[2018-04-25] MEDS ORDERED: Albuterol/Ipratropium 3ml neb HHN ONE (22:15)
[2018-04-25] MEDS ORDERED: Albuterol ud Inhalation HHN ONE (22:45)
[2018-04-25 23:10] VITALS: BP 118/69
== END 2018-04-25 23:10 | disposition home or self-care (01) ==
LOC: EMR 22:02
DX: J06.9 Acute upper respiratory infection, unspecified (principal); J45.901 Unspecified asthma with (acute) exacerbation
CPT/HCPCS: 94640; 94664; 99284; J7512; J7620

== ENCOUNTER 2018-06-01 19:41 | Emergency (ER) | payer OTHER ==
[~2018-06-01] VITALS: Ht 172.7 cm; Wt 90.7 kg
[~2018-06-01 19:41] MED LIST changes: +ALBUTEROL SULF8.5 GM INH; +PREDNISONE20 MG ORAL
[2018-06-01] MEDS ORDERED: Tylenol #3 tab (300mg/30mg) ORAL ONE (20:30)
[2018-06-01 20:52] LABS: APPEARANCE,URINE SLIGHTLY CLOUDY; BILIRUBIN, URINE NEGATIVE (NEGATIVE); COLOR,URINE BROWN; GLUCOSE, URINE (UA) NEGATIVE (NEGATIVE); KETONES,URINE 1+ (NEGATIVE); LEUKOCYTE ESTERASE ,URINE 2+ (NEGATIVE); NITRITE,URINE POSITIVE (NEGATIVE); PH,URINE 5 (4.5-8.0); PROTEIN,URINE 3+ (NEGATIVE); UROBILINOGEN,URINE 1 MG/DL (NORMAL)
--- NOTE | 2018-06-01 20:57 | Emergency Room Report ---
History of Present Illness General Chief Complaint: Back Pain-No Injury Source: Patient Present Illness HPI 27-year-old female presents to the emergency department complaining of 10 out of 10 in severity low back aches in addition to urinary frequency and urgency 2 weeks. Patient denies fevers or chills she reports she is currently on her period and is unable to determine if she has hematuria. Patient denies trauma or fall. Patient denies recent strenuous activities. She denies abdominal pain or dictation of her pain. Patient states that her symptoms are constant in nature. Denies nausea or vomiting. Denies hx of urinary stones. reports symptoms are similar to symptoms experienced in the past with UTI. Denies vaginal d/c, swollen & tender lymph nodes, external genital lesions or history of STDs. Allergies: Coded Allergies: No Known Allergies (Unverified , 01/23/17) Patient History Past Medical History: see triage record Past Surgical History: none Pertinent Family History: none Last Menstrual Period: 06/01/18 Now: No Reviewed Nursing Documentation: PMH: Agreed; PSxH: Agreed Nursing Documentation-PMH Hx Cardiac Problems: No - Anemia Hx Asthma: Yes Hx Gastrointestinal Problems: No - UTI Review of Systems All Other Systems: negative except mentioned in HPI Physical Exam Vital Signs Date Time Temp Pulse Resp B/P (MAP) Pulse Ox O2 Delivery O2 Flow Rate FiO2 06/01/18 19:45 98.2 85 18 121/71 99 Room Air 98.2 Sp02 EP Interpretation: reviewed, normal General Appearance: no apparent distress, alert, GCS 15, non-toxic Head: normocephalic, atraumatic ENT: hearing grossly normal, normal voice Neck: full range of motion Respiratory: lungs clear, normal breath sounds, speaking full sentences Cardiovascular #1: regular rate, rhythm Gastrointestinal: non tender, soft Rectal: deferred Genitourinary: normal inspection, no CVA tenderness Musculoskeletal: back normal, gait/station normal, normal range of motion, non- tender Neurologic: alert, oriented x3, responsive, motor strength/tone normal, sensory intact, normal gait, speech normal, grossly normal Psychiatric: judgement/insight normal Skin: normal color, no rash, warm/dry, well hydrated Medical Decision Making PA Attestation Dr. Monzon is my supervising Physician whom patient management has been discussed with. Diagnostic Impression: Primary Impression: Urinary tract infection Qualified Codes: N30.01 - Acute cystitis with hematuria ER Course 27-year-old female presents to the emergency department complaining of 10 out of 10 in severity low back aches in addition to urinary frequency and urgency 2 weeks. Patient denies fevers or chills she reports she is currently on her period and is unable to determine if she has hematuria. Patient denies trauma or fall. Patient denies recent strenuous activities. She denies abdominal pain or dictation of her pain. Patient states that her symptoms are constant in nature. Denies nausea or vomiting. Denies hx of urinary stones. reports symptoms are similar to symptoms experienced in the past with UTI. Denies vaginal d/c, swollen & tender lymph nodes, external genital lesions or history of STDs. Ddx considered but are not limited to UTi , Pyelo, STI, Stone, Cystitis Vital signs: are WNL, pt. is afebrile H&PE are most consistent with UTI ORDERS: - UA labs are attached -- Positive for infection= Nitrite positive. ED INTERVENTIONS: -Tylenol #3 PO DISCHARGE: At this time pt. is stable for d/c to home. Will provide printed patient care instructions, and any necessary prescriptions. Care plan and follow up instructions have been discussed with the patient prior to discharge. Labs Test 06/01/18 20:20 Urine Color Brown Urine Appearance Slightly cloudy Urine pH 5 (4.5-8.0) Urine Specific [place] 1.020 (1.005-1.035) Urine Protein 3+ (NEGATIVE) Urine Glucose (UA) Negative (NEGATIVE) Urine Ketones 1+ (NEGATIVE) Urine Occult Blood 5+ (NEGATIVE) Urine Nitrite Positive (NEGATIVE) Urine Bilirubin Negative (NEGATIVE) Urine Urobilinogen 1 MG/DL (NORMAL) Urine Leukocyte Esterase 2+ (NEGATIVE) Urine RBC Tntc /HPF (0 - 2) Urine WBC 5-10 /HPF (0 - 2) Urine Squamous Epithelial Cells Few /LPF (NONE/OCC) Urine Bacteria Few /HPF (NONE) Last Vital Signs Date Time Temp Pulse Resp B/P (MAP) Pulse Ox O2 Delivery O2 Flow Rate FiO2 06/01/18 20:24 98.2 06/01/18 19:45 85 18 121/71 99 Room Air Disposition: HOME, SELF-CARE Condition: Stable Scripts Phenazopyridine Hcl* (PYRIDIUM*) 200 Mg Tablet 200 MG ORAL THREE TIMES A DAY for 3 Days, #9 TAB 0 Refills Prov: Angella Guerrero 06/01/18 Trimethoprim/Sulfamethoxazole 160/800* (BACTRIM DS TABLET*) 1 Each Tablet 1 TAB ORAL TWICE A DAY for 7 Days, #14 TAB Prov: Angella Guerrero 06/01/18 Referrals: [facility],REFERRING (PCP) Patient Instructions: Urinary Tract Infection, [id number] Additional Instructions: Take medications as directed. Follow up with a Primary Care Provider in 3-5 days, even if your symptoms have resolved. --Please review list of primary care clinics, if you do not already have a primary care provider Return sooner to ED if new symptoms occur, or current symptoms become worse. - Please note that this Emergency Department Report was dictated using [employer] technology software, occasionally this can lead to erroneous entry secondary to interpretation by the dictation equipment. Angella Guerrero Jun 01, 2018 20:57
[2018-06-01] MEDS ORDERED: PHENAZOPYRIDIN200 MG ORAL (20:59)
[2018-06-01] MEDS ORDERED: BACTRIM DS TAB1 EAC1 ORAL (20:59)
[2018-06-01 21:06] VITALS: BP 120/89
== END 2018-06-01 21:28 | disposition home or self-care (01) ==
LOC: EMR 20:05
DX: N39.0 Urinary tract infection, site not specified (principal); J45.909 Unspecified asthma, uncomplicated
CPT/HCPCS: 81003; 99284

== ENCOUNTER 2018-08-22 23:40 | Emergency (ER) | payer SELFPAY ==
[~2018-08-22] VITALS: Ht 170.2 cm; Wt 90.7 kg
[~2018-08-22 23:40] MED LIST changes: +PHENAZOPYRIDIN200 MG ORAL
[2018-08-23] MEDS ORDERED: AUGMENTIN 875-1 EAC1 ORAL (00:03)
[2018-08-23] MEDS ORDERED: IBUPROFEN600 MG ORAL (00:03)
--- NOTE | 2018-08-23 00:04 | Emergency Room Report ---
History of Present Illness General Chief Complaint: Earache Source: Patient Present Illness HPI Is a 28-year-old female with no significant past medical history. She presents with chief complaint of sore throat, ear pain and fever. Onset for last couple days. Also with headache. No cough. No congestion. Pain is 8 out of 10. Has not take anything for it. Worse with blowing her nose. No other complaint. Allergies: Coded Allergies: No Known Allergies (Unverified , 01/23/17) Patient History Past Medical History: see triage record, old chart reviewed Past Surgical History: none Pertinent Family History: none Social History: Denies: smoking Last Menstrual Period: 07/08/2018 Now: No : 2 Para: 0 Immunizations: other Reviewed Nursing Documentation: PMH: Agreed; PSxH: Agreed Nursing Documentation-PMH Past Medical History: No History, Except For Hx Cardiac Problems: No - Anemia Hx Asthma: Yes Hx Gastrointestinal Problems: No - UTI Review of Systems Constitutional: Reports: fever Eye: Denies: eye pain, blurred vision ENT: Reports: ear pain, throat pain; Denies: nose congestion, throat swelling Respiratory: Denies: cough, shortness of breath Cardiovascular: Denies: chest pain, palpitations Gastrointestinal: Denies: abdominal pain, diarrhea, nausea, vomiting Musculoskeletal: Denies: back pain, joint pain Skin: Denies: rash Neurological: Denies: headache, numbness Endocrine: Denies: increased thirst, increased urine Hematologic/Lymphatic: Denies: easy bruising All Other Systems: negative except mentioned in HPI Physical Exam Vital Signs Date Time Temp Pulse Resp B/P (MAP) Pulse Ox O2 Delivery O2 Flow Rate FiO2 08/22/18 23:47 98.1 83 16 138/87 98 Room Air vitals normal Sp02 EP Interpretation: reviewed, normal General Appearance: well appearing, no apparent distress, alert Head: normocephalic, atraumatic Eyes: bilateral eye PERRL, bilateral eye EOMI ENT: hearing grossly normal, tonsillar swelling, pharyngeal erythema, other - Right TM is cloudy with effusion. Left TM is mildly erythematous Neck: full range of motion, supple, no meningismus Respiratory: chest non-tender, lungs clear, normal breath sounds Cardiovascular #1: regular rate, rhythm, no murmur Gastrointestinal: normal bowel sounds, non tender, no mass, no organomegaly, no bruit, non-distended Musculoskeletal: back normal, gait/station normal, normal range of motion Psychiatric: mood/affect normal Skin: warm/dry Medical Decision Making Diagnostic Impression: Primary Impression: Otitis media Qualified Codes: H66.90 - Otitis media, unspecified, unspecified ear Additional Impression: Pharyngitis, acute ER Course Patient presents with a viral illness complicated by otitis media. She looks well. No evidence of any meningitis. No evidence of sepsis, pneumonia, acute abdomen or other serious bacterial infection. We'll discharge home. Last Vital Signs Date Time Temp Pulse Resp B/P (MAP) Pulse Ox O2 Delivery O2 Flow Rate FiO2 08/22/18 23:47 98.1 83 16 138/87 98 Room Air Status: improved Disposition: HOME, SELF-CARE Condition: Stable Scripts Ibuprofen* (MOTRIN*) 600 Mg Tablet 600 MG ORAL THREE TIMES A DAY, #30 TAB 0 Refills Prov: Niels Maurice MD 08/23/18 Amoxicillin/Potassium Clav 875-125* (AUGMENTIN 875-125 TABLET*) 1 Each Tablet 1 TAB ORAL TWICE A DAY, #14 TAB Prov: Niels Maurice MD 08/23/18 Patient Instructions: Otitis Media, Adult, [id number] Additional Instructions: Increase fluids. Salt water gargle. Follow-up with your doctor in 7 days. Return if worse. Niels Maurice MD Aug 23, 2018 00:04
[2018-08-23] MEDS ORDERED: Norco 5mg/325mg tab ORAL ONE (00:15)
[2018-08-23] MEDS ORDERED: HYDROCODON-ACE1 EA15 ORAL (00:24)
[2018-08-23 00:25] VITALS: BP 138/87
[2018-08-23 00:27] VITALS: BP 0/0
== END 2018-08-23 00:28 | disposition home or self-care (01) ==
LOC: EMR 23:57
DX: J02.9 Acute pharyngitis, unspecified (principal); J45.909 Unspecified asthma, uncomplicated
CPT/HCPCS: 99283

== ENCOUNTER 2018-08-28 19:51 | Emergency (ER) | payer SELFPAY ==
[~2018-08-28] VITALS: Ht 170.2 cm; Wt 95.3 kg
[~2018-08-28 19:51] MED LIST changes: +AUGMENTIN 875-1 EAC1 ORAL
[2018-08-28 20:17] VITALS: BP 136/91
--- NOTE | 2018-08-28 20:22 | Emergency Room Report ---
History of Present Illness General Chief Complaint: Back Pain-No Injury Source: Patient Present Illness HPI Patient's 28-year-old female presented after increased low back pain. Patient had gradual onset of symptoms. Patient recently been on antibiotics for ear and throat infection. She reports having increased lower abdominal discomfort associated with some dysuria. She had not been having any vomiting. She reports having pain worsening with movement.She denies any hematemesis or bloody stools. The patient reports having increased burning with urination the she states she has not noticed that she's had in the blood in her urine Allergies: Coded Allergies: No Known Allergies (Unverified , 01/23/17) Patient History Past Medical History: see triage record Last Menstrual Period: 07/16/18 Now: No : 2 Para: 0 Reviewed Nursing Documentation: PMH: Agreed; PSxH: Agreed Nursing Documentation-PMH Past Medical History: No History, Except For Hx Cardiac Problems: No - Anemia Hx Asthma: Yes Hx Gastrointestinal Problems: No - UTI Review of Systems All Other Systems: negative except mentioned in HPI Physical Exam Vital Signs Date Time Temp Pulse Resp B/P (MAP) Pulse Ox O2 Delivery O2 Flow Rate FiO2 08/28/18 20:00 98.2 90 17 136/91 97 Room Air General Appearance: well appearing, no apparent distress, alert, GCS 15 Head: normocephalic, atraumatic ENT: hearing grossly normal, normal voice Neck: full range of motion, supple Respiratory: no respiratory distress, speaking full sentences Musculoskeletal: decreased range of mation, other - right paraspinous tenderness, no skin changes, held slight left lateral flexion Neurologic: normal inspection, alert, oriented x3, responsive, normal gait Psychiatric: mood/affect normal Skin: no rash Medical Decision Making Diagnostic Impression: Primary Impression: Low back pain ER Course Patient presented for back pain. Differential diagnosis included but was not limited to herniated disc, cauda equina syndrome, abdominal aortic aneurysm, perforated ulcer, spinal epidural abscess, spinal stenosis, lumbar fracture, metastatic lesion, pyelonephritis. Because of complexity of patient's case laboratory testing and imaging studies were ordered. The patient was given pain medications. She was advised to recheck with primary care physician. She is advised to return for worsening pain persistent vomiting or other concerns. The patient is advised that she may need MRI or further imaging Labs Test 08/28/18 20:05 Urine Color Pale yellow Urine Appearance Clear Urine pH 8 (4.5-8.0) Urine Specific [place] 1.010 (1.005-1.035) Urine Protein Negative (NEGATIVE) Urine Glucose (UA) Negative (NEGATIVE) Urine Ketones Negative (NEGATIVE) Urine Blood 1+ (NEGATIVE) Urine Nitrite Negative (NEGATIVE) Urine Bilirubin Negative (NEGATIVE) Urine Urobilinogen Normal MG/DL (0.0-1.0) Urine Leukocyte Esterase 1+ (NEGATIVE) Urine RBC 0-2 /HPF (0 - 2) Urine WBC 0-2 /HPF (0 - 2) Urine Squamous Epithelial Cells Few /LPF (NONE/OCC) Urine Bacteria Few /HPF (NONE) Urine HCG, Qualitative Negative (NEGATIVE) Last Vital Signs Date Time Temp Pulse Resp B/P (MAP) Pulse Ox O2 Delivery O2 Flow Rate FiO2 08/28/18 20:17 98.2 90 17 136/91 97 Room Air Status: improved Disposition: HOME, SELF-CARE Condition: Stable Scripts Cyclobenzaprine Hcl* (FLEXERIL*) 10 Mg Tablet 10 MG ORAL THREE TIMES A DAY, #30 TAB Prov: Meño Monzon MD 08/28/18 Meño Monzon MD Aug 28, 2018 20:22
[2018-08-28] MEDS ORDERED: Ketorolac 60mg Inj IM ONE (20:30)
[2018-08-28 20:34] LABS: APPEARANCE,URINE CLEAR; BILIRUBIN, URINE NEGATIVE (NEGATIVE); COLOR,URINE PALE YELLOW; GLUCOSE, URINE (UA) NEGATIVE (NEGATIVE); KETONES,URINE NEGATIVE (NEGATIVE); LEUKOCYTE ESTERASE ,URINE 1+ (NEGATIVE); NITRITE,URINE NEGATIVE (NEGATIVE); PH,URINE 8 (4.5-8.0); PROTEIN,URINE NEGATIVE (NEGATIVE); UROBILINOGEN,URINE NORMAL MG/DL (0.0-1.0)
[2018-08-28] MEDS ORDERED: Dexamethasone 4mg/ml vial IM ONE (20:45)
[2018-08-28] MEDS ORDERED: Morphine Sulfate 4mg/ml Inj (IV/IM USE ONLY) IM ONE (21:30)
[2018-08-28] MEDS ORDERED: CYCLOBENZAPRINE10 MG ORAL (22:00)
[2018-08-28 22:21] VITALS: BP 115/75
== END 2018-08-28 22:06 | disposition home or self-care (01) ==
LOC: EMR 20:42
DX: M54.5 Low back pain (principal); J45.909 Unspecified asthma, uncomplicated; Z87.440 Personal history of urinary (tract) infections
CPT/HCPCS: 81003; 81025; 96372; 99283; J1100; J2270

== ENCOUNTER 2018-11-19 10:01 | Emergency (ER) | payer OTHER ==
[~2018-11-19] VITALS: Ht 172.7 cm; Wt 90.7 kg
[~2018-11-19 10:01] MED LIST changes: +CYCLOBENZAPRINE10 MG ORAL
[2018-11-19] MEDS ORDERED: NKM (10:08)
[2018-11-19] MEDS ORDERED: Mylanta II UD 30ml ORAL ONE (10:15)
[2018-11-19] MEDS ORDERED: Lidocaine 2% Visc 15ml soln ORAL ONE (10:15)
[2018-11-19 10:16] VITALS: BP 115/68
--- NOTE | 2018-11-19 10:16 | NUR ---
ED Nurse Note: Pt came in due to epigastric pain with N/V/D since yesterday. Denies CP. VSS. Pt AAO x4, ambulatory with no respiratpry distress. Will continue to assess.
--- NOTE | 2018-11-19 10:30 | NUR ---
ED Nurse Note: Blood/Urine collected and sent.
[2018-11-19 10:41] LABS: APPEARANCE,URINE SLIGHTLY CLOUDY; BILIRUBIN, URINE NEGATIVE (NEGATIVE); COLOR,URINE PALE YELLOW; GLUCOSE, URINE (UA) NEGATIVE (NEGATIVE); KETONES,URINE NEGATIVE (NEGATIVE); LEUKOCYTE ESTERASE ,URINE 2+ (NEGATIVE); NITRITE,URINE NEGATIVE (NEGATIVE); PH,URINE 6 (4.5-8.0); PROTEIN,URINE 1+ (NEGATIVE); UROBILINOGEN,URINE NORMAL MG/DL (0.0-1.0)
[2018-11-19 10:45] LABS: ANION GAP 10 mmol/L (5-15); BLOOD UREA NITROGEN 8 mg/dL (7-18); CALCIUM 8.6 MG/DL (8.5-10.1); CARBON DIOXIDE 26 MMOL/L (21-32); CHLORIDE 102 MMOL/L (98-107); CREATININE 0.7 MG/DL (0.55-1.30); POTASSIUM 4.1 MMOL/L (3.5-5.1); SODIUM 138 MMOL/L (136-145)
[2018-11-19 10:47] LABS: BASOPHILS % (AUTO) 1.1 % (0.0-2.0); EOSINOPHILS % (AUTO) 2.4 % (0.0-3.0); HEMATOCRIT 33.9 % (37.0-47.0); HEMOGLOBIN 10.8 G/DL (12.0-16.0); MEAN CORPUSCULAR VOLUME 71 FL (80-99); MONOCYTES % (AUTO) 6.9 % (1.0-10.0); NEUTROPHILS % (AUTO) 53.6 % (45.0-75.0); PLATELET COUNT 391 K/UL (150-450); RED BLOOD COUNT 4.78 M/UL (4.20-5.40); WHITE BLOOD COUNT 6.5 K/UL (4.8-10.8)
[2018-11-19 10:49] LABS: ALANINE AMINOTRANSFERASE 119 U/L (12-78); ALBUMIN 3.6 G/DL (3.4-5.0); ALBUMIN/GLOBULIN RATIO 0.7 (1.0-2.7); ALKALINE PHOSPHATASE 102 U/L (46-116); ASPARTATE AMINO TRANSFERASE 78 U/L (15-37); BILIRUBIN,TOTAL 0.2 MG/DL (0.2-1.0)
--- NOTE | 2018-11-19 10:50 | NUR ---
ED Nurse Note: Allyssa MONROE staff at the bed side.
[2018-11-19] MEDS ORDERED: Ketorolac 30mg Inj IV ONE (11:00)
--- NOTE | 2018-11-19 11:49 | Emergency Room Report ---
History of Present Illness General Chief Complaint: Vomiting Source: Patient Present Illness HPI This patient states she has a history of gastritis. She states that for the past 5 days she has had no appetite. She states she has also had nausea and vomiting. She states that she has developed pain in her epigastrium. She denies fever or chills. She denies dysuria or hematuria. She denies chest pain or shortness of breath. She states that although she has been diagnosed with gastritis in the past, she is not on any preventative medications. She has no other complaints. Allergies: Coded Allergies: No Known Allergies (Unverified , 01/23/17) Patient History Past Medical History: see triage record, asthma, GERD Past Surgical History: none Social History: Denies: smoking, alcohol use, drug use Now: No Reviewed Nursing Documentation: PMH: Agreed; PSxH: Agreed Nursing Documentation-PMH Hx Cardiac Problems: No - Anemia Hx Asthma: Yes Hx Gastrointestinal Problems: Yes - GASTRITIS Review of Systems All Other Systems: negative except mentioned in HPI Physical Exam Vital Signs Date Time Temp Pulse Resp B/P (MAP) Pulse Ox O2 Delivery O2 Flow Rate FiO2 11/19/18 10:06 98.4 72 19 123/86 98 Room Air Sp02 EP Interpretation: reviewed, normal General Appearance: no apparent distress, alert, GCS 15, non-toxic Head: normocephalic, atraumatic Eyes: bilateral eye normal inspection, bilateral eye PERRL ENT: hearing grossly normal, normal pharynx, no angioedema, normal voice Neck: full range of motion, supple/symm/no masses Respiratory: chest non-tender, lungs clear, normal breath sounds, no respiratory distress, no retraction, no accessory muscle use, speaking full sentences Cardiovascular #1: regular rate, rhythm, no edema Gastrointestinal: normal bowel sounds, soft, non-distended, no guarding, no rebound, tenderness - epigastrium Rectal: deferred Musculoskeletal: back normal, gait/station normal, normal range of motion, non- tender Neurologic: alert, oriented x3, responsive, motor strength/tone normal, sensory intact, speech normal Psychiatric: judgement/insight normal, memory normal, mood/affect normal, no suicidal/homicidal ideation Skin: normal color, no rash, warm/dry, well hydrated Medical Decision Making Diagnostic Impression: Primary Impression: Gastritis Additional Impressions: Transaminitis Fatty liver UTI (urinary tract infection) ER Course This patient has a clinical presentation consistent with gastritis. The location of the pain and history and physical examination is consistent with this. I considered other concerning differentials, to include appendicitis, cholelithiasis, cholecystitis, pancreatitis, perforated viscus, aortic aneurysm , and pyelonephritis to name a few. However, laboratory workup in combination with medical and surgical history and physical exam makes these unlikely at this time. I did obtain an ultrasound of the right upper quadrant to assess the gallbladder and it was unremarkable, although she is found to have a fatty liver. She also has a transaminitis that appears to be stable and chronic. She is instructed to follow-up with her primary care physician for this. I will place the patient on a PPI and give her Zofran and I instructed her on the proper diet. The patient's urinalysis is contaminated. I am unsure whether this patient has an actual urinary tract infection or if it is contaminated. I will go ahead and place the patient on a course of antibiotics as a precaution. I also instructed the patient that she should follow up with her primary care Physician to get a referral to a criminal judge for possible EGD. I did educate the patient on close return precautions and followup instructions. She indicated understanding and intention to do so. Laboratory Tests Test 11/19/18 10:20 White Blood Count 6.5 K/UL (4.8-10.8) Red Blood Count 4.78 M/UL (4.20-5.40) Hemoglobin 10.8 G/DL (12.0-16.0) L Hematocrit 33.9 % (37.0-47.0) L Mean Corpuscular Volume 71 FL (80-99) L Mean Corpuscular Hemoglobin 22.6 PG (27.0-31.0) L Mean Corpuscular Hemoglobin Concent 32.0 G/DL (32.0-36.0) Red Cell Distribution Width 16.0 % (11.6-14.8) H Platelet Count 391 K/UL (150-450) Mean Platelet Volume 5.8 FL (6.5-10.1) L Neutrophils (%) (Auto) 53.6 % (45.0-75.0) Lymphocytes (%) (Auto) 36.0 % (20.0-45.0) Monocytes (%) (Auto) 6.9 % (1.0-10.0) Eosinophils (%) (Auto) 2.4 % (0.0-3.0) Basophils (%) (Auto) 1.1 % (0.0-2.0) Urine Color Pale yellow Urine Appearance Slightly cloudy Urine pH 6 (4.5-8.0) Urine Specific [place] 1.015 (1.005-1.035) Urine Protein 1+ (NEGATIVE) H Urine Glucose (UA) Negative (NEGATIVE) Urine Ketones Negative (NEGATIVE) Urine Blood 2+ (NEGATIVE) H Urine Nitrite Negative (NEGATIVE) Urine Bilirubin Negative (NEGATIVE) Urine Urobilinogen Normal MG/DL (0.0-1.0) Urine Leukocyte Esterase 2+ (NEGATIVE) H Urine RBC 2-4 /HPF (0 - 2) H Urine WBC 15-20 /HPF (0 - 2) H Urine Squamous Epithelial Cells Many /LPF (NONE/OCC) H Urine Bacteria Few /HPF (NONE) Urine HCG, Qualitative Negative (NEGATIVE) Sodium Level 138 MMOL/L (136-145) Potassium Level 4.1 MMOL/L (3.5-5.1) Chloride Level 102 MMOL/L (98-107) Carbon Dioxide Level 26 MMOL/L (21-32) Anion Gap 10 mmol/L (5-15) Blood Urea Nitrogen 8 mg/dL (7-18) Creatinine 0.7 MG/DL (0.55-1.30) Estimate Glomerular Filtration Rate > 60 mL/min (>60) Glucose Level 95 MG/DL (74-106) Calcium Level 8.6 MG/DL (8.5-10.1) Total Bilirubin 0.2 MG/DL (0.2-1.0) Aspartate Amino Transferase (AST) 78 U/L (15-37) H Alanine Aminotransferase (ALT) 119 U/L (12-78) H Alkaline Phosphatase 102 U/L (46-116) Total Protein 8.5 G/DL (6.4-8.2) H Albumin 3.6 G/DL (3.4-5.0) Globulin 4.9 g/dL Albumin/Globulin Ratio 0.7 (1.0-2.7) L Lipase 142 U/L (73-393) CT/MRI/US Diagnostic Results CT/MRI/US Diagnostic Results : Imaging Test Ordered: RUQ US Impression Normal gallbladder. Finally liver. See official report in electronic medical record. Last Vital Signs Date Time Temp Pulse Resp B/P (MAP) Pulse Ox O2 Delivery O2 Flow Rate FiO2 11/19/18 10:16 98.4 78 20 115/68 100 Room Air Status: improved Disposition: HOME, SELF-CARE Condition: Improved Referrals: Carmen GARRETT,REFERRING (PCP) Samantha Hernández DO Nov 19, 2018 11:49
--- NOTE | 2018-11-19 11:56 | Diagnostic Imaging Report ---
Indication: Abdominal pain, abnormal liver function tests Technique: Wolff-scale and duplex images of the upper abdomen were obtained. Doppler interrogation of the pancreatic and hepatic vessels Comparison: none Findings: Gallbladder is unremarkable, without stones, wall thickening, nor pericholecystic fluid. Sonographic Ayala's sign is negative. Common bile duct measures 5 mm in diameter. No intrahepatic biliary ductal dilatation. Liver demonstrates diffusely increased echogenicity, consistent with diffuse hepatocellular disease, most likely fatty change. Portal vein and hepatic veins are patent. Pancreas is obscured by bowel gas. Spleen is unremarkable. Left kidney measures 11.1 cm in length. Right kidney measures 9.6 cm length. Both kidneys demonstrate normal echogenicity. There is no hydronephrosis. No focal abnormality . Abdominal aorta is partially obscured by bowel gas, visualized portions are non-aneurysmal . Impression: Negative for gallstones or dilated ducts Liver demonstrates diffusely increased echogenicity, consistent with diffuse hepatocellular disease, most likely fatty change. Note inability to visualize the pancreas and portions of the abdominal aorta
[2018-11-19] MEDS ORDERED: cefTRIAXone 1 GM in NS 55 ML IVPB ONE (12:00)
[2018-11-19] MEDS ORDERED: ZOFRAN ODT8 MG ORAL (12:19)
[2018-11-19] MEDS ORDERED: PROTONIX40 MG ORAL (12:19)
[2018-11-19] MEDS ORDERED: MAALOX ADVANCE770 ML PO (12:19)
[2018-11-19] MEDS ORDERED: PEPCID AC20 M2 PO (12:19)
[2018-11-19 12:30] VITALS: BP 122/76
--- NOTE | 2018-11-19 12:30 | NUR ---
ED Nurse Note: Pt cleared by ER MD for discharge. ACI/prescription was given and explained to pt and verbalized understanding. All medical devices such as ID band/IV removed. Pt AAOx4, ambulates with steady gait.
== END 2018-11-19 12:30 | disposition home or self-care (01) ==
LOC: EMR 10:45
DX: K29.70 Gastritis, unspecified, without bleeding (principal); K76.0 Fatty (change of) liver, not elsewhere classified; N39.0 Urinary tract infection, site not specified; R74.0 Nonspecific elevation of levels of transaminase and lactic acid dehydrogenase [LDH]; J45.909 Unspecified asthma, uncomplicated
CPT/HCPCS: 36415; 76700; 80053; 81003; 81025; 83690; 85025; 87086; 96361; 96365; 96375; 99284; J0696; J1885; J2405; S0028

== ENCOUNTER 2019-01-04 22:10 | Emergency (ER) | payer OTHER ==
[~2019-01-04] VITALS: Ht 170.2 cm; Wt 90.7 kg
[~2019-01-04 22:10] MED LIST changes: +MAALOX ADVANCE770 ML PO; +PEPCID AC20 M2 PO; +PROTONIX40 MG ORAL; +ZOFRAN ODT8 MG ORAL
--- NOTE | 2019-01-04 22:30 | NUR ---
ED Nurse Note: pt walked in c/o chest pain x 1 day. denies coughing. AO4. NAD. VSS
--- NOTE | 2019-01-04 22:38 | Emergency Room Report ---
History of Present Illness General Chief Complaint: Chest Pain Source: Patient Present Illness HPI Patient presents with complaints of left upper chest pain complains of a sharp pain She felt the pain come on yesterday This morning at work the pain persisted and brought the day it continued and after work patient presents for further evaluation denies any change with position or exertion denies any shortness of breath or pleurisy Denies any vomiting or diarrhea denies any abdominal pain patient reports travel to [place] 2 weeks ago Otherwise denies any swelling in her legs Allergies: Coded Allergies: No Known Allergies (Unverified , 01/23/17) Patient History Past Medical History: see triage record Pertinent Family History: none Last Menstrual Period: oct Now: No : 2 Para: 0 Reviewed Nursing Documentation: PMH: Agreed; PSxH: Agreed Nursing Documentation-PMH Hx Cardiac Problems: No - Anemia Hx Asthma: Yes Hx Gastrointestinal Problems: Yes - GASTRITIS Review of Systems All Other Systems: negative except mentioned in HPI Physical Exam Vital Signs Date Time Temp Pulse Resp B/P (MAP) Pulse Ox O2 Delivery O2 Flow Rate FiO2 01/04/19 22:15 98.2 86 16 124/83 97 Room Air Sp02 EP Interpretation: reviewed, normal General Appearance: well appearing, no apparent distress Head: normocephalic, atraumatic Eyes: bilateral eye PERRL, bilateral eye EOMI ENT: hearing grossly normal, normal pharynx, TMs + canals normal, uvula midline Neck: full range of motion, supple, no meningismus, no bony tend Respiratory: lungs clear, normal breath sounds, no rhonchi, no respiratory distress, no retraction, no accessory muscle use Cardiovascular #1: normal peripheral pulses, regular rate, rhythm, no edema, no gallop, no JVD, no murmur Gastrointestinal: normal bowel sounds, non tender, soft, no mass, no organomegaly, non-distended, no guarding, no hernia, no pulsatile mass, no rebound Genitourinary: no CVA tenderness Musculoskeletal: normal inspection Neurologic: oriented x3, responsive, principal statistical programmer III-XII nml as tested, motor strength/ tone normal, sensory intact Psychiatric: mood/affect normal Skin: normal color, no rash, warm/dry, palpation normal Lymphatic: normal inspection, no adenopathy Medical Decision Making Diagnostic Impression: Primary Impression: Chest pain ER Course Patient is a fairly complex patient with multiple differential to consideration including but not limited to cardiac cardiopulmonary and vascular emergencies Patient's EKG shows questionable LVH there is also nonspecific finding no obvious ST elevation No other evidence of ischemia acutely X-rays obtained There is some haziness left lower lobe this is likely secondary to body habitus Patient lung sounds are clear EKG was copied for the patient this does require close outpatient follow-up Patient does not show any signs and symptoms consistent with pulmonary embolism or acute pathology however given the anomaly of the EKG close follow-up again is recommended EKG Diagnostic Results Rate: normal Rhythm: NSR ST Segments: other - Nonspecific ST change, questionable LVH Rhythm Strip Diag. Results EP Interpretation: yes Rate: 60 Rhythm: NSR, no PVC's, no ectopy Chest X-Ray Diagnostic Results Chest X-Ray Diagnostic Results : Chest X-Ray Ordered: Yes # of Views/Limited/Complete: 1 View Indication: Chest Pain EP Interpretation: Yes Interpretation: no consolidation, no effusion, no pneumothorax Impression: No acute disease - Left lower lobe has questionable hazines likely secondary to habitus Electronically Signed by: Adrianna Jones DO Last Vital Signs Date Time Temp Pulse Resp B/P (MAP) Pulse Ox O2 Delivery O2 Flow Rate FiO2 01/04/19 22:15 98.2 86 16 124/83 97 Room Air Status: unchanged Disposition: HOME, SELF-CARE Condition: Stable Additional Instructions: Patient is provided with the discharge instructions notified to follow up with primary doctor in the next 2-3 days otherwise return to the er with any worsening symptoms. Please note that this report is being documented using [employer] technology. This can lead to erroneous entry secondary to incorrect interpretation by the dictating instrument. Adrianna Jones DO Jan 04, 2019 22:38
[2019-01-04] MEDS ORDERED: Acetaminophen 500mg (ES) tab ORAL ONE (22:45)
--- NOTE | 2019-01-04 23:16 | NUR ---
ER DISCHARGE NOTE: Patient is cleared to be discharged per ERMD, pt is aox4, on room air, with stable vital signs. pt was given dc and prescription instructions, pt was able to verbalize understanding, pt id band removed. pt is able to ambulate with steady gait. pt took all belongings.
[2019-01-05 02:50] VITALS: BP 124/83
--- NOTE | 2019-01-05 12:42 | Diagnostic Imaging Report ---
Indication: Chest pain Technique: One view of the chest Comparison: none Findings: Heart size is upper limits normal. Lungs and pleural spaces are clear. Impression: No acute process
--- NOTE | 2019-01-05 17:00 | Cardiology Report ---
APPROVED REPORT EKG Measurement Heart [id number] Normal sinus rhythm Minimal voltage criteria for LVH, may be normal variant Possible Anterior infarct, age undetermined Abnormal ECG
== END 2019-01-04 23:16 | disposition home or self-care (01) ==
LOC: EMR 22:30
DX: R07.9 Chest pain, unspecified (principal); J45.909 Unspecified asthma, uncomplicated
CPT/HCPCS: 71045; 93005; 99283

== ENCOUNTER 2019-10-17 20:19 | Emergency (ER) | payer OTHER ==
[~2019-10-17] VITALS: Ht 172.7 cm; Wt 95.3 kg
--- NOTE | 2019-10-17 20:40 | NUR ---
ED Nurse Note: Walk-in patien presents with complaints of left side back pain 8/10, x 4 days. Patient reports history of a singular kidney infection but denies any other history. Patient is ambulatory with steady gait and A&Ox4. Patient has not taken anything for the pain and reports worsening pain today. Will continue to monitor patient for impending orders. Urine sample collected and packaged for lab analysis.
[2019-10-17 20:42] VITALS: BP 126/75
[2019-10-17] MEDS ORDERED: Phenazopyridine 200mg tab ORAL ONE (21:00)
[2019-10-17 21:18] LABS: APPEARANCE,URINE CLEAR; BILIRUBIN, URINE NEGATIVE (NEGATIVE); COLOR,URINE PALE YELLOW; GLUCOSE, URINE (UA) NEGATIVE (NEGATIVE); KETONES,URINE NEGATIVE (NEGATIVE); LEUKOCYTE ESTERASE ,URINE 3+ (NEGATIVE); NITRITE,URINE NEGATIVE (NEGATIVE); PH,URINE 7 (4.5-8.0); PROTEIN,URINE NEGATIVE (NEGATIVE); UROBILINOGEN,URINE 1 MG/DL (0.0-1.0)
[2019-10-17] MEDS ORDERED: PHENAZOPYRIDIN200 MG ORAL (21:27)
[2019-10-17] MEDS ORDERED: IBUPROFEN600 MG ORAL (21:27)
[2019-10-17] MEDS ORDERED: CEPHALEXIN500 MG ORAL (21:27)
[2019-10-17 21:47] VITALS: BP 106/78
--- NOTE | 2019-10-17 21:47 | NUR ---
ER DISCHARGE NOTE: Patient is cleared to be discharged per ERMD, pt is aox4, on room air, with stable vital signs. pt was given dc and prescription instructions, Rx sent to pharmacy on file, pt was able to verbalize understanding, pt id band removed without complications. pt is able to ambulate with steady gait. pt took all belongings.
--- NOTE | 2019-10-18 13:58 | Emergency Room Report ---
History of Present Illness General Chief Complaint: Back Pain-No Injury Source: Patient Present Illness HPI Patient is a 29-year-old female presents after increased low back pain. She reports of increased pain to the left flank. She reports having gradual onset of symptoms. She reports having increased urinary frequency and urgency over the past 2 days. She not been vomiting. She reports having some sore throat as well. She denies any vaginal discharge. She denies being . Pain did not radiate. She reports pain being constant. Denies any vomiting or diarrhea Allergies: Coded Allergies: No Known Allergies (Unverified , 01/23/17) Patient History Past Medical History: see triage record Last Menstrual Period: Reviewed Nursing Documentation: PMH: Agreed; PSxH: Agreed Nursing Documentation-PMH Past Medical History: No History, Except For Hx Cardiac Problems: No - Anemia, KIDNEY INFECTION Hx Asthma: Yes Hx Gastrointestinal Problems: Yes - GASTRITIS Review of Systems All Other Systems: negative except mentioned in HPI Physical Exam Vital Signs Date Time Temp Pulse Resp B/P (MAP) Pulse Ox O2 Delivery O2 Flow Rate FiO2 10/17/19 20:26 98.2 86 14 126/75 (92) 97 Room Air General Appearance: well appearing, no apparent distress, alert, GCS 15 Head: normocephalic, atraumatic ENT: hearing grossly normal, normal voice Neck: full range of motion, supple Respiratory: lungs clear, no respiratory distress, speaking full sentences Cardiovascular #1: normal inspection, no edema Gastrointestinal: normal inspection, soft Genitourinary: CVA tenderness (L) Musculoskeletal: no calf tenderness Neurologic: alert, motor strength/tone normal, incoming inspector III-XII nml as tested, oriented x3, normal gait Psychiatric: normal inspection, mood/affect normal Skin: no rash Medical Decision Making Diagnostic Impression: Primary Impression: Urinary tract infection ER Course Patient presented for dysuria. Differential diagnosis included was not limited to appendicitis, urinary tract infection, urethritis, herpes among others. Urinalysis showed some evidence of urinary infection. Patient has a benign exam and does not appear to require imaging studies or labs at this time. Patient does have some mild CVA tenderness but does not appear to be toxic and is afebrile currently. Patient was given prescription for oral antibiotics. She was advised to return if worse. Patient appears to be stable for outpatient management. Patient was advised to have urine recheck for clearance. Advised to return for fever, increased pain, persistent vomiting or other concerns. This medical record is generated with [employer] md allergy immunology software. There may be some md allergy immunology discrepancies related to use of this software Labs Test 10/17/19 20:39 Urine Color Pale yellow Urine Appearance Clear Urine pH 7 (4.5-8.0) Urine Specific [place] 1.005 (1.005-1.035) Urine Protein Negative (NEGATIVE) Urine Glucose (UA) Negative (NEGATIVE) Urine Ketones Negative (NEGATIVE) Urine Blood Negative (NEGATIVE) Urine Nitrite Negative (NEGATIVE) Urine Bilirubin Negative (NEGATIVE) Urine Urobilinogen 1 MG/DL (0.0-1.0) Urine Leukocyte Esterase 3+ (NEGATIVE) Urine RBC 0 /HPF (0 - 2) Urine WBC 5-10 /HPF (0 - 2) Urine Squamous Epithelial Cells Moderate /LPF (NONE/OCC) Urine Bacteria Few /HPF (NONE) Last Vital Signs Date Time Temp Pulse Resp B/P (MAP) Pulse Ox O2 Delivery O2 Flow Rate FiO2 10/17/19 21:47 98.1 82 16 106/78 99 Room Air Status: improved Disposition: HOME, SELF-CARE Condition: Stable Scripts Phenazopyridine Hcl* (PYRIDIUM*) 200 Mg Tablet 200 MG ORAL THREE TIMES A DAY, #14 TAB 0 Refills Prov: Meño Monzon MD 10/17/19 Ibuprofen* (MOTRIN*) 600 Mg Tablet 600 MG ORAL Q6H PRN for For Pain, #30 TAB 0 Refills Prov: Meño Monzon MD 10/17/19 Cephalexin* (KEFLEX*) 500 Mg Capsule 500 MG ORAL EVERY 6 HOURS, #28 CAP Prov: Meño Monzon MD 10/17/19 Referrals: [facility],REFERRING (PCP) Patient Instructions: Urinary Tract Infection Meño Monzon MD Oct 18, 2019 13:58
== END 2019-10-17 21:47 | disposition home or self-care (01) ==
LOC: EMR 21:21
DX: N39.0 Urinary tract infection, site not specified (principal); M54.5 Low back pain
CPT/HCPCS: 81003; Z7502; 99283